=== PATIENT | female | born 1975 | race Hispanic/Latino ===

== ENCOUNTER → 2019-01-31 14:41 | Outpatient (CLI) | payer OTHER, SELFPAY ==
[2019-01-31 15:04] LABS: Add Manual Diff / Slide Review NO; Basophils Absolute Auto 0 /uL (0-100); Basophils Percent Auto 0.7 % (0-2); Eosinophils Absolute Auto 200 /uL (0-450); Eosinophils Percent Auto 3.7 % (2-4); Hematocrit 30.6 % (36-46); Hemoglobin 9.6 g/dL (12.0-16.0); Lymphocytes Absolute Auto 2000 /uL (1100-4500); Lymphocytes Percent Auto 41.4 % (25-40); Mean Corpuscular HGB Conc 31.3 % (30-36); Mean Corpuscular Hemoglobin 20.9 PG (26-34); Mean Corpuscular Volume 66.7 fL (80-100); Monocytes Absolute Auto 500 /uL (0-900); Monocytes Percent Auto 9.8 % (3-14); Neutrophils Absolute Auto 2100 /uL (1500-7000); Neutrophils Percent Auto 44.4 % (50-75); Platelet Count 336 X10^3/uL (150-400); Red Blood Cell Count 4.59 X10^6/uL (4.0-5.2); Red Cell Distribution Width 18.5 % (11.6-14.8); White Blood Cell Count 4.8 X10^3/uL (4.5-11.0)
[2019-01-31 15:32] LABS: Alanine Aminotransferase 11 IU/L (9-52); Albumin 4.5 g/dL (3.5-5.0); Albumin Globulin Ratio 1.3 (1.0-2.8); Alkaline Phosphatase 82 U/L (38-126); Aspartate Aminotransferase 26 IU/L (14-36); Bilirubin Total 0.3 mg/dL (0.2-1.3); Blood Urea Nitrogen 11 mg/dL (7-17); Carbon Dioxide 27 mmol/L (22-32); Chloride 103 mmol/L (98-107); Estimated Glomerular Filt Rate > 60.0 mL/min (>60); Globulin 3.5 g/dL (1.7-4.1); Glucose 102 mg/dL (70-100); HEMOLYSIS < 15 (0-50); Potassium 3.5 mmol/L (3.4-5.1); Sodium 140 mmol/L (137-145)
[2019-01-31 15:39] LABS: Hypochromasia 2+; Microcytosis 3+; Ovalocytes 1+
[2019-01-31 15:49] LABS: HEMOLYSIS < 15 (0-50); Iron 14 ug/dL (37-170)
[2019-01-31 16:00] LABS: Percent Iron Saturation 3 % (15-50); Total Iron Binding Capacity 499 ug/dL (265-497); Transferrin 394 mg/dL (206-381)
[2019-01-31 16:07] LABS: Ferritin 3.6 ng/mL (6.27-137)
[2019-01-31 16:21] LABS: Vitamin B12 274 pg/mL (239-931)
[2019-01-31 16:22] LABS: Thyroid Stimulating Hormone 2.55 uIU/mL (0.47-4.68)
== END ==
PROVIDERS: PCP Physician Assistant; Visit Provider Physician Assistant
DX: D50.9 Iron deficiency anemia, unspecified (principal); N92.4 Excessive bleeding in the premenopausal period; R53.83 Other fatigue
CPT/HCPCS: 36415; 80053; 82607; 82728; 83540; 83550; 84443; 85025

== ENCOUNTER → 2019-02-08 07:36 | Outpatient (CLI) | payer OTHER, SELFPAY ==
--- NOTE | 2019-02-08 07:38 | DI.US.S_ITS ---
PROCEDURE: US PELVIC COMPLETE INDICATIONS: HEAVY BLEEDING DURING MENSES, FE DEFICIENT ANEMIA TECHNIQUE: Real-time scanning was performed of the pelvic organs, with image documentation. Additional endovaginal scanning was necessary due to incomplete visualization of the adnexal and endometrial structures by transabdominal scanning. COMPARISON: None. FINDINGS: Transabdominal scanning: Limited scanning through the kidneys shows no hydronephrosis. No pathologic free abdominal or pelvic fluid. Endovaginal scanning: Uterus: Uterus is normal in size at 10.1 x 5.2 x 6.1 cm. The myometrium is heterogeneous there is a likely fibroid seen on the right anteriorly that is intramural/submucosal measuring 2.2 x 1.6 x 2 cm. The endometrium measures 12 mm in combined thickness. Ovaries: The right ovary measures 4.1 x 2.2 x 2 cm and demonstrates a rounded complex avascular focus that measures up to 2.1 cm. There is also an additional 1.5 cm hypoechoic complex cyst is seen. The left ovary measures 3 x 2.1 x 1.9 cm and demonstrates normal sonographic appearance. No adnexal masses are seen. IMPRESSION: Heterogeneous myometrium with an apparent 2.2 cm fibroid seen. Within the right ovary, there are 2 apparent hemorrhagic cyst is seen. At clinical discretion, a followup pelvic ultrasound is suggested in 6 weeks to assure resolution/ improvement. Dictated by: Simba Cedeno M.D. on 02/08/2019 at 8:03 Approved by: Simba Cedeno M.D. on 02/08/2019 at 8:07
== END ==
PROVIDERS: PCP Physician Assistant; Visit Provider Physician Assistant
DX: N92.4 Excessive bleeding in the premenopausal period (principal); D50.9 Iron deficiency anemia, unspecified; D25.9 Leiomyoma of uterus, unspecified; N83.291 Other ovarian cyst, right side
CPT/HCPCS: 76830; 76856

== ENCOUNTER → 2019-03-16 07:50 | Outpatient (CLI) | payer OTHER, SELFPAY ==
[2019-03-16 08:48] LABS: Add Manual Diff / Slide Review NO; Basophils Absolute Auto 0 /uL (0-100); Basophils Percent Auto 0.9 % (0-2); Eosinophils Absolute Auto 100 /uL (0-450); Eosinophils Percent Auto 2.8 % (2-4); Hematocrit 34.7 % (36-46); Hemoglobin 10.8 g/dL (12.0-16.0); Lymphocytes Absolute Auto 1300 /uL (1100-4500); Lymphocytes Percent Auto 34.4 % (25-40); Mean Corpuscular HGB Conc 31.1 % (30-36); Mean Corpuscular Hemoglobin 21.7 PG (26-34); Mean Corpuscular Volume 69.7 fL (80-100); Monocytes Absolute Auto 300 /uL (0-900); Monocytes Percent Auto 9.1 % (3-14); Neutrophils Absolute Auto 1900 /uL (1500-7000); Neutrophils Percent Auto 52.8 % (50-75); Platelet Count 320 X10^3/uL (150-400); Red Blood Cell Count 4.97 X10^6/uL (4.0-5.2); Red Cell Distribution Width 20.7 % (11.6-14.8); White Blood Cell Count 3.7 X10^3/uL (4.5-11.0)
[2019-03-16 08:57] LABS: HEMOLYSIS < 15 (0-50); Iron 32 ug/dL (37-170)
[2019-03-16 09:02] LABS: Reticulocyte Count, Percent 1.2 % (1.06-2.63)
[2019-03-16 09:07] LABS: Percent Iron Saturation 7 % (15-50); Total Iron Binding Capacity 473 ug/dL (265-497); Transferrin 388 mg/dL (206-381)
[2019-03-16 09:25] LABS: Ferritin 4.7 ng/mL (6.27-137)
[2019-03-16 09:42] LABS: Anisocytosis 2+
[2019-03-16 09:43] LABS: Hypochromasia 2+; Microcytosis 3+
[2019-03-16 09:44] LABS: Ovalocytes 1+
== END ==
PROVIDERS: PCP Physician Assistant
DX: D50.9 Iron deficiency anemia, unspecified (principal)
CPT/HCPCS: 36415; 82728; 83540; 83550; 85025; 85045

== ENCOUNTER 2019-05-30 06:46 | Day surgery (SDC) | payer OTHER, SELFPAY ==
[2019-05-25 08:18] VITALS: BMI 25.5
[2019-05-30] VITALS (12 sets, daily range): BP systolic 99–119; BP diastolic 57–76; PULSE 62–90; RESP 10–18; TEMP 35.8–36.6; O2SAT 94–100; BMI 25.7
--- NOTE | 2019-05-30 | PATH_ITS ---
[facility] Accession Number: [id number] . 01 Material submitted: . uterus - UTERUS (NOT INCLUDING CERVIX) AND BILATERAL FALLOPIAN TUBE REMNANTS . 02 Diagnosis: Uterus and Bilateral Fallopian Tube Remnants, Supracervical Hysterectomy and Bilateral Partial Salpingectomy (Morcellated Uterus Specimen Weighs 87 grams): Portions of late secretory endometrium; negative for glandular hyperplasia, cytologic atypia or malignancy. Myometrium with no significant histomorphologic abnormality. Uterine serosa with no significant histomorphologic abnormality. Portions of fallopian tube with benign paratubal cysts (1-3 mm in greatest dimension); negative for atypia or malignancy. [facility] 06/03/2019 0811 Local . 02 Electronically signed: . Sabrina Jones MD, Pathologist NPI- [id number] . 01 Gross description: . Received in formalin, labeled uterus (not including cervix) / bilateral fallopian tube remnants, is a morcellated uterus (87 g, 13.0 x 8.5 x 4.8 cm in aggregate) and multiple pieces of apparent fallopian tube (3.5 x 2.2 x 0.8 cm in aggregate). The cervix and ovaries are absent. The specimen cannot be oriented, and the endometrium and myometrium cannot be grossly measured. The parenchyma is cadet and unremarkable. The serosa is cadet, smooth, and shiny. The fallopian tube pieces have garcia-purple, smooth, shiny serosa with multiple paratubal cysts (0.1 cm - 0.3 cm) containing clear, colorless, and turbid fluid. The lumens are cadet and unremarkable. Possible fimbriae are identified. Section Code: (A1-A4) uterine parenchyma, sales representative advertising; (A5) fallopian tube pieces, serially sectioned, entirely submitted; (A6, A7) one bisected possible fimbria in each cassette. ([id number]) /I 06/01/2019 1204 Local . 02 Pathologist provided ICD-10: D50.9, N93.9, D50.0, N94.6 . 02 CPT . 119833 Performed at: 01 [facility] [address] [place] [address], [place], [place] [id number] MD Ken Kothari MD Phone: [phone] Performed at: [address] [place] [id number] [place], [place] [id number] MD Yadira Fermin MD Phone: [phone]
[2019-05-30] MEDS: LACTATED RINGERS 1,000 ML 100 ML IV (07:20)
--- NOTE | 2019-05-30 07:48 | PM.PREOP ---
Pre-operative Note Interval Note History & Physical reviewed/Exam performed by Physician: Yes Changes to H&P: No
[2019-05-30] MEDS: CEFAZOLIN 2 GM/100 ML FROZ.PIGGY IV (07:49)
[2019-05-30] MEDS: BUPIVACAINE 0.25% W/ EPI 30 ML VIAL INJ (08:24)
--- NOTE | 2019-05-30 08:27 | SUR.OPER ---
Lithotomy on padded OR bed. Gunter Pad Positioner under torso. Head on pillow, arms padded and tucked at sides. Legs secured in padded yellow fins stirrups.
[2019-05-30] MEDS: ROPIVACAINE 2% PF 2 MG/ML 20ML AMP 20 ML INJ (09:25)
--- NOTE | 2019-05-30 10:15 | P.OP_ITS ---
Operative Date/Time/Diagnoses Date of procedure: 05/30/19 Time of procedure: 07:45 Pre-op diagnosis: Abnormal uterine bleeding Post-op diagnosis: same Procedure & Clinicians Procedure: Procedures Operation Date: 05/30/19 07:45 Actual Procedures Side Surgeon p Laparoscopic Supracervical Hysterectomy w/ bilateral salpingectomy Lashae Bernard MD Indications: abnormal uterine bleeding, no cervical dysplasia Surgeon: Lashae Bernard Assistant Director Of Residence Life: Natividad Palma Anesthesia Type: General Operative Notes Findings: Normal vulva, vagina, and cervix. Normal laparoscopic abdominal survey. Remnants of fallopian tubes after prior tubal ligation, otherwise normal. Uterus bulbous, texture consistent with adenomyosis. Closure Type: primary Specimen(s): portion of left tube, portion of right tube and uterus Applied: catheter Estimated blood loss (mL): 50 Blood products transfused: none Procedure in detail: After proper consents were obtained, the patient was taken to the operating room. General anesthesia was induced, and she was placed in the dorsal lithotomy position and prepped and draped in the normal sterile fashion. A gage catheter was placed, and a speculum placed in the patient's vagina. A single tooth tenaculum was applied to the anterior lip of the cervix, and hegar dilators used to dilate the cervix to 6mm with gentle pressure. A uterine manipulator was gently inserted and the balloon inflated to 5ccs. The tenaculum and speculum were removed from the vagina. Attention was then turned to the abdomen, where 1cc of .25% marcaine with epinephrine was used to infiltrate the skin just below the umbilicus. A scalpel was used to make a 5mm incision, towel clamps were applied and used to elevate the anterior abdominal wall, and a Veress needle gently inserted into the abdomen. Intraperitoneal placement was confirmed with a drop of normal saline passed through the veress needle with gravity, and CO2 used to insufflate the abdomen to 15mmHg. A 5mm trocar and sleeve were placed into the abdomen through this incision, using the towel clamps to elevate the abdominal wall, and intraperitoneal placement was confirmed visually with insertion of the laparoscope. Abdominal survey at this time was normal, and lateral ports were placed under direct visualization. These were placed on the left and right, 8cm from the umbilicus and after infiltration of 1mm of local anesthetic as above. The patient was placed in trendelenburg position, and a blunt probe used to gently push the bowel out of the pelvis. The ovaries and fallopian tube remnants appeared normal bilaterally. A atraumatic grasper was used to elevate the remnant of the left fallopian tube, and a PK device was used to amputate this remnant, which was removed from the abdomen. The uteroovarian ligament and round ligaments were then cauterized and transected with this device, the anterior and posterior leaflets of the broad ligament and skeletonized and the vesicouterine peritoneum identified. This was transected and a bladder flap created with the PK device and gentle traction. The uterine arteries were identified, and cauterized and cut at the level of the internal os. The same procedure was performed on the patient's right, without complication. The Richi loop was inserted into the abdomen, and placed around the uterus at the level of the internal os. After careful inspection for proper placement anteriorly and posteriorly, this device was used to amputate the uterine fundus without complication. The PK device was used to ablate the cervical os, and hemostasis achieved where necessary with the PK device. Attention was then turned to the abdominal wall, where .25% marcaine with epinephrine was used to infiltrate a midline area 2cm above the pubic symphesis. A scalpel was used to make a 3cm minilaparotomy, and a 15mm trocar and sleeve inserted under direct visualization into the abdominal cavity. A 12mm endocatch bag was placed through this port under direct visualization, and carefully deployed into the abdomen. The uterus was placed in the bag, and the bag was closed and removed under direct visualization of all parts of the bag. The open end of the bag was removed through the port, the port was removed, and the open end of the endocatch bag brought through the incision. A small Jennifer device was inserted to protect the incision and skin, and the uterus was brought to the opening of the incision and carefully hand morcellated out through the incision using a scalpel, During this process, a scalpel injury was sustained by the operating surgeon. This was immediately recognized, the involved scalpel removed, and the surgeon's finger cleaned with betadine and double gloved with clean gloves, with no exposure to the patient. After removal of the uterus, the jennifer device and endocatch bag were removed. The fascia at the minilaparotomy incision was closed using 0 vicryl in a running fashion. The abdomen was re-insufflated, hemostasis at the operative sites assur ed, and a repeat abdominal survey was normal. The laparoscope was removed from the abdomen, the insufflating gas allowed to escape, and the ports removed. an interrupted suture was used at the mini-laparotomy to close the subcutaneous space in an interrupted fashion, and the skin at all 4 incisions closed with 4-0 biosyn, then covered with steri strips and bandages. The gage catheter was removed from the bladder. The patient tolerated the procedure well, all counts were correct, 2g of Ancef were given at the beginning of the case and a test was negative on admission. The patient was transported to PACU in stable condition. IVF: 700ccs LR UOP: 150ccs clear yellow urine EBL: <50ccs Complications: none Post-operative Condition: stable Disposition: PACU Plan for aftercare: Routine postoperative care
--- NOTE | 2019-05-30 11:04 | SUR.PHASEI ---
pt held in PACU for over 30 mins for orders to be completed by MD. Report called to YUE Stockton in acute care. Pt transferred via bed to room 221 in stable condition by RN's Hansel.
[2019-05-30 12:12] LABS: Alanine Aminotransferase 13 IU/L (<35)
[2019-05-30 13:27] LABS: Hepatitis B Surface Antigen NEGATIVE s/c (NEGATIVE)
[2019-05-30 13:43] LABS: HIV 1 & 2 Ab/Ag 4th Gen Combo NEGATIVE (NEGATIVE); Hep C Virus Ab w/Reflex Quant NEGATIVE s/c (NEGATIVE)
[2019-05-30] MEDS: ACETAMINOPHEN 325 MG TABLET 650 MG PO (14:31)
--- NOTE | 2019-05-30 16:07 | PC.NURSE ---
Addendum entered by Aria Maldonado R.N. 05/30/19 22:14: Med @ 210 for discomfort, will assess. Stable post op course. Continue w/plan of care. Addendum entered by rAia Maldonado R.N. 05/30/19 20:34: Pt has had relatively uneventful evening. Denies discomfort at this time. Lap sites intact. Stable post op course. Call light w/in reach, Pt calls appropriately for needs. Continue w/plan of care. Addendum entered by Aria Maldonado R.N. 05/30/19 16:21: SCD' on w/o incidense Original Note: Pt resting quietly at this time. Lugs clear, SpO2 98% RA Surgical lap sites CDI Denies discomfort at this time Call light w/in reach. Pt calls appropriately for needs.
[2019-05-30] MEDS: NAPROXEN 250 MG TABLET 500 MG PO ×2 (17:15→22:05)
--- NOTE | 2019-05-30 17:18 | PM.PNPO.1 ---
Subjective Subjective Date Patient Seen: 05/30/19 Time Patient Seen: 17:18 Interval history: Patient reports feeling generally well, has voided several times, has ambulated, is tolerating p.o., has good pain control. Patient reports ?tailbone pressure, like I have to pass gas but can't.? Has not yet passed flatus. Exam Vital Signs (past 8 hours): - 05/30/19 09:42 05/30/19 09:47 05/30/19 09:52 Temperature 97.1 F L Pulse Rate 90 87 84 Respiratory Rate 11 L 10 L 12 Blood Pressure 116/65 113/71 117/70 Pulse Oximetry 97 97 97 05/30/19 10:07 05/30/19 10:22 05/30/19 11:00 Temperature 96.5 F L Pulse Rate 87 82 81 Respiratory Rate 18 10 L 14 Blood Pressure 109/67 111/72 119/66 Pulse Oximetry 100 98 99 05/30/19 11:35 05/30/19 12:05 05/30/19 13:05 Temperature 96.5 F L 97.0 F L 97.0 F L Pulse Rate 79 84 75 Respiratory Rate 16 14 16 Blood Pressure 107/62 104/68 102/64 Pulse Oximetry 94 98 98 05/30/19 14:05 Temperature 97.5 F L Pulse Rate 70 Respiratory Rate 16 Blood Pressure 99/61 Pulse Oximetry 99 Oxygen Delivery Method Room Air Oxygen Flow Rate 0 Const General: cooperative, healthy appearing and comfortable Other: Resting in bed GI Inspection: non-distended and incision (Clean, dry, intact, covered by bandages) Palpation: soft and tender (Mild suprapubic tenderness) Objective Labs Labs: Laboratory Results - last 24 hr 05/30/19 05/30/19 11:12 11:12 ALT 13 Hep Bs Antigen Negative Hepatitis C Antibody Negative HIV 1&2 Ab/P24 Ag 4thGn Negative Assessment & Plan Post-op Assessment and plan (1) Status post laparoscopic hysterectomy: Postoperative Procedures: Procedures Operation Date: 05/30/19 07:45 Actual Procedures Side Surgeon p Laparoscopic Supracervical Hysterectomy w/ bilateral salpingectomy Lashae Bernard MD Postoperative day: 0 Postoperative status: doing well Postoperative status narrative: Patient's only complaint is failure to pass flatus, sensation of rectal pressure. Glycerin suppository ordered as needed, patient encouraged to ambulate, eat, chew gum. Colace ordered as needed, to be given by nurse. Will continue to closely monitor per usual protocol. Discussed scalpel stick injury to surgeon with patient, reviewed lab results, reviewed the patient was not exposed to surgeon's blood or bodily fluids. All questions answered. Postoperative plan: routine post-op care Postoperative plan narrative: Ambulation encouraged, regular diet encouraged, void at well. Colace, as needed glycerin suppository. H and H in a.m. Time Spent With Patient Time with patient: 15-24 minutes Quality VTE Deep Vein Thrombosis/Pulmonary Embolism Present on Admission: No
[2019-05-30 19:51] LABS: Add Manual Diff / Slide Review NO; Basophils Absolute Auto 100 /uL (0-100); Basophils Percent Auto 0.8 % (0-2); Eosinophils Absolute Auto 0 /uL (0-450); Hematocrit 38.6 % (36-46); Hemoglobin 12.8 g/dL (12.0-16.0); Lymphocytes Absolute Auto 700 /uL (1100-4500); Lymphocytes Percent Auto 9.7 % (25-40); Mean Corpuscular HGB Conc 33.2 % (30-36); Mean Corpuscular Hemoglobin 27.2 PG (26-34); Mean Corpuscular Volume 82.1 fL (80-100); Monocytes Absolute Auto 100 /uL (0-900); Neutrophils Absolute Auto 6700 /uL (1500-7000); Neutrophils Percent Auto 88.5 % (50-75); Platelet Count 253 X10^3/uL (150-400); Red Cell Distribution Width 22.7 % (11.6-14.8); White Blood Cell Count 7.6 X10^3/uL (4.5-11.0)
[2019-05-30 20:23] LABS: Anisocytosis 2+; Ovalocytes 2+; Poikilocytosis 2+
[2019-05-30] MEDS: DOCUSATE 100 MG CAPSULE PO (22:07)
[2019-05-31 01:00] VITALS: BP 109/63; PULSE 80; RESP 16; TEMP 36.9; O2SAT 98
--- NOTE | 2019-05-31 02:47 | PC.NURSE ---
PT REPORTS GOOD PAIN CONTROL WITH ONLY USE OF NAPROSYN- DECLINE NEED FOR NARCOTIC AT THIS TIME- LAP SITES TO ABD COVERED WITH LARGE BANDAIDS- CDI, HYPO ACTIVE BT'S NOTED AND STILL NO BM- COLACE GIVEN AT HS AND PT DRANK APPOX 60 MLS OF PRUNE JUICE AND WOULD LIKE TO WAIT UNTIL AM TO DISCUSS NEED FOR RECTAL SUPPOSITORY- ENCOURAGED INCREASED MOBILITY WELL-RESTING COMFORTABLY AT PRESENT AND HOPEFUL TO DISCHARGE TO HOME LATER THIS DATE
[2019-05-31] MEDS: NAPROXEN 250 MG TABLET 500 MG PO (06:39)
[2019-05-31] MEDS: DOCUSATE 100 MG CAPSULE PO (06:39)
[2019-05-31 07:25] VITALS: BP 116/76; PULSE 78; RESP 16; TEMP 36.9; O2SAT 99
--- NOTE | 2019-05-31 07:29 | PC.NURSE ---
Patient alert, oriented denies pain at this time, no nausea. Ambulating indep in halls. No needs at this time.
--- NOTE | 2019-05-31 07:55 | P.PN_ITS ---
Subjective Subjective Date Patient Seen: 05/31/19 Time Patient Seen: 07:30 Interval history: Patient reports feeling well overnight, good pain control on naproxen, voiding without difficulty, ambulating without difficulty, tolerating p.o.. Minimal to no vaginal spotting or discharge. Patient has passed scant flatus, is concerned this feels that she has more flatus to pass. Has not had bowel movement. Exam Vital Signs (past 8 hours): - 05/31/19 01:00 Temperature 98.4 F Pulse Rate 80 Respiratory Rate 16 Blood Pressure 109/63 Pulse Oximetry 98 Oxygen Delivery Method Room Air Oxygen Flow Rate 0 Const General: cooperative, healthy appearing and comfortable Other: Patient resting in bed, smiling. Resp Effort & Inspection: normal respiratory effort Auscultation: clear to auscultation bilaterally Cardio Rate: regular rate Rhythm: regular rhythm GI Inspection: non-distended Palpation: soft, No guarding and tender (Very mildly tender suprapubically) Other: Incisions clean, dry, intact. Patient to remove bandages in shower. Skin General: no rashes or lesions noted Extrem Right lower extremity: normal to inspection Left lower extremity: normal to inspection Objective Labs Result Diagrams: 05/30/19 19:30 Labs: Laboratory Results - last 24 hr 05/30/19 05/30/19 05/30/19 11:12 11:12 19:30 WBC 7.6 RBC 4.70 Hgb 12.8 Hct 38.6 MCV 82.1 MCH 27.2 MCHC 33.2 RDW 22.7 H Plt Count 253 Neut % (Auto) 88.5 H Lymph % (Auto) 9.7 L [place] % (Auto) 1.0 L Eos % (Auto) 0.0 L Baso % (Auto) 0.8 Neut # (Auto) 6700 Lymph # (Auto) 700 L [place] # (Auto) 100 Eos # (Auto) 0 Baso # (Auto) 100 RBC Morphology See below Poikilocytosis 2+ H Anisocytosis 2+ H Ovalocytes 2+ H ALT 13 Hep Bs Antigen Negative Hepatitis C Antibody Negative HIV 1&2 Ab/P24 Ag 4thGn Negative Blood Type Antibody Screen 05/30/19 19:30 WBC RBC Hgb Hct MCV MCH MCHC RDW Plt Count Neut % (Auto) Lymph % (Auto) [place] % (Auto) Eos % (Auto) Baso % (Auto) Neut # (Auto) Lymph # (Auto) [place] # (Auto) Eos # (Auto) Baso # (Auto) RBC Morphology Poikilocytosis Anisocytosis Ovalocytes ALT Hep Bs Antigen Hepatitis C Antibody HIV 1&2 Ab/P24 Ag 4thGn Blood Type A Positive Antibody Screen Negative Assessment & Plan Assessment and plan (1) Status post laparoscopic hysterectomy: Current visit: Yes Status: Acute Assessment & Plan narrative: This patient is recovering well postoperatively on postop day 1 after a laparoscopic supracervical hysterectomy and bilateral salpingectomy for menorrhagia. The patient is meeting postoperative goals appropriately. Patient has passed scant flatus, to ambulate, have breakfast with coffee, chew gum, and considering suppository. Discussed that bowel movement would not necessarily be expected, passage of flatus sign of good bowel function. Discussed precautions for return including fevers, chills, increasing pain, increasing bleeding, dizziness, chest pain, trouble breathing, or any other concerns. Patient will return to clinic in 1-2 weeks for postoperative checkup. Discussed postoperative precautions such as avoiding heavy lifting nothing in the vagina. Questions were answered, patient vocalized understanding. Patient spouse also vocalized understanding. Time Spent With Patient Time with patient: 15-24 minutes Quality VTE Deep Vein Thrombosis/Pulmonary Embolism Present on Admission: No
[2019-05-31 08:41] LABS: Hemoglobin 12.6 g/dL (12.0-16.0)
--- NOTE | 2019-05-31 10:01 | PC.NURSE ---
Went over dc meds and instructions with patien, questions answered. Patient tolerated breakfast without nausea, had bowel movement. Patient taken via WC to vehicle driven by spouse, patient had all belongings.
--- NOTE | 2019-05-31 14:21 | CM.DANOTE ---
DCP Brief Assessment Note Patient is a 43 year old female who was admitted on 05/31/19 for OBGYN surgical intervention. Pt has [employer] for insurance and her PCP is Lucia Gregory. EMR was reviewed. Per MD, pt tolerated procedure well and is stable for d/c home with no identified barriers to discharge. Per RN, pt is alert and oriented and ambulating halls independently, no concerns at this time. Pt works and is independent at baseline. SW unable to complete bedside assessment due to triage needs and no d/c needs identified. Plan: Patient to d/c home today via family POV and no SW needs at this time. LINDEN Lau
[2019-06-02 15:04] LABS: Hepatitis B Surf Ab Qualitativ Nonreactive (Nonreactive)
== END 2019-05-31 10:03 | disposition home or self-care (01) ==
LOC: OR 06:49 → AC 10:46
PROVIDERS: PCP Physician Assistant; Referring Provider Obstetrics & Gynecology; Visit Provider Obstetrics & Gynecology
PROC: 0UT94ZL Resection of Uterus, Supracervical, Percutaneous Endoscopic Approach (ICD-10-PCS; CPT 58542; principal; 2019-05-30 07:45)
DX: N93.9 Abnormal uterine and vaginal bleeding, unspecified (principal); D50.0 Iron deficiency anemia secondary to blood loss (chronic); N94.6 Dysmenorrhea, unspecified; N83.8 Other noninflammatory disorders of ovary, fallopian tube and broad ligament
CPT/HCPCS: 58542; 36415; 85014; 85018; 85025; 86850; 86900; 86901; J0690; J1100; J1885; J2250; J2405; J2704; J2795; J3010

== ENCOUNTER 2019-06-02 16:38 | Emergency (ER) | payer OTHER, SELFPAY ==
[2019-05-30 14:17] VITALS: BMI 25.7
[2019-06-02 17:15] VITALS: BP 128/65; PULSE 82; RESP 15; TEMP 37.2; O2SAT 100; BMI 25.7
--- NOTE | 2019-06-02 17:22 | DI.RAD.S_ITS ---
PROCEDURE: XR CHEST 2V INDICATIONS: chest pain TECHNIQUE: 2 views of the chest were acquired. COMPARISON: None. FINDINGS: Surgical changes and devices: None. Lungs and pleura: Lungs are clear. No pleural effusions or pneumothorax. Mediastinum: Mediastinal contours are normal. Heart size is normal. Bones and chest wall: No suspicious bony abnormalities. Soft tissues appear unremarkable. IMPRESSION: Negative chest. No acute cardiopulmonary process is evident. Dictated by: Yovani Arriaza M.D. on 06/02/2019 at 16:50 Approved by: Yovani Arriaza M.D. on 06/02/2019 at 16:51
[2019-06-02 18:04] LABS: Add Manual Diff / Slide Review NO; Basophils Absolute Auto 0 /uL (0-100); Basophils Percent Auto 0.3 % (0-2); Eosinophils Absolute Auto 200 /uL (0-450); Eosinophils Percent Auto 2.4 % (2-4); Hematocrit 38.5 % (36-46); Hemoglobin 12.8 g/dL (12.0-16.0); Lymphocytes Absolute Auto 2500 /uL (1100-4500); Lymphocytes Percent Auto 36.3 % (25-40); Mean Corpuscular HGB Conc 33.3 % (30-36); Mean Corpuscular Hemoglobin 27.6 PG (26-34); Mean Corpuscular Volume 82.9 fL (80-100); Monocytes Absolute Auto 500 /uL (0-900); Monocytes Percent Auto 6.7 % (3-14); Neutrophils Absolute Auto 3700 /uL (1500-7000); Neutrophils Percent Auto 54.3 % (50-75); Platelet Count 257 X10^3/uL (150-400); Red Blood Cell Count 4.65 X10^6/uL (4.0-5.2); Red Cell Distribution Width 22.2 % (11.6-14.8); White Blood Cell Count 6.8 X10^3/uL (4.5-11.0)
[2019-06-02 18:07] LABS: INR 1.2 (0.9-1.3); Prothrombin Time 13.3 SECONDS (10.1-12.7)
[2019-06-02 18:09] LABS: PTT Partial Thromboplastin Tim 31 SECONDS (26.4-36.2)
[2019-06-02 18:12] LABS: Alanine Aminotransferase 12 IU/L (<35); Albumin 4.2 g/dL (3.5-5.0); Albumin Globulin Ratio 1.3 (1.0-2.8); Alkaline Phosphatase 59 U/L (38-126); Aspartate Aminotransferase 19 IU/L (14-36); BUN Creatinine Ratio 16.7 (6-22); Bilirubin Total 0.2 mg/dL (0.2-1.3); Blood Urea Nitrogen 10 mg/dL (7-17); Calcium 9.3 mg/dL (8.4-10.2); Carbon Dioxide 26 mmol/L (22-32); Chloride 104 mmol/L (98-107); Creatine Kinase 32 U/L (30-135); Estimated Glomerular Filt Rate > 60.0 mL/min (>60); Globulin 3.3 g/dL (1.7-4.1); Glucose 101 mg/dL (70-100); HEMOLYSIS 15 (0-50); Lipase 60 U/L (23-300); Potassium 3.8 mmol/L (3.4-5.1); Sodium 139 mmol/L (137-145); Total Protein 7.5 g/dL (6.3-8.2)
--- NOTE | 2019-06-02 18:14 | ED_ITS ---
HPI - Chest Pain <ALINA Rothman - Last Filed: 06/02/19 21:28> General Chief Complaint: Chest Pain Stated Complaint: recent procedure, nausea,headache,cramp in leg Time Seen by Provider: 06/02/19 18:09 Source: patient and family Mode of arrival: Ambulatory Limitations: no limitations History of Present Illness HPI narrative: The patient is a 43-year-old female nonsmoker who presents with a chief complaint of postoperative pain, cramps in her legs, nausea headache and transient chest pain. She had a laparoscopic hysterectomy on Thursday. She states she had some initial chest pain immediately after, but went away. She states her chest pain comes and goes. She denies any fevers, but complains of some hot flashes. She states she had this before her surgery as well. She denies any vomiting she take Motrin for the headache. She states she called the clinic and they referred her to the emergency department today. She denies any lower leg swelling, shortness of breath. Related Data Previous Rx's Medication Instructions Recorded ferrous sulfate 324 mg PO DAILY #90 tab 02/15/19 Allergies Allergy/AdvReac Type Severity Reaction Status Date / Time Sulfa (Sulfonamide Allergy Intermediate Hives Verified 06/02/19 17:15 Antibiotics) Review of Systems <ALINA Rothman - Last Filed: 06/02/19 21:28> Review of Systems Narrative: GENERAL: See HPI HEENT: Denies sinus pain, ear pain, sore throat, difficulty swallowing, dizziness. RESPIRATORY: Denies dyspnea, cough, wheezing, hemoptysis, sputum. CARDIOVASCULAR: See HPI GASTROINTESTINAL: See HPI : Denies dysuria, frequency, incontinence, hematuria, urinary retention. MUSCULOSKELETAL: denies weakness, joint pain, or bony pain SKIN: Denies rash, skin lesions, or other NEUROLOGIC: Denies weakness, headache, numbness, change in speech, confusion, seizures, incoordination. PSYCHIATRIC: No concerning psychosocial issues. 12 point review of systems is negative except for those stated above Patient History <ALINA Rothman - Last Filed: 06/02/19 21:28> Medical History Anemia (Inactive ~2000) Blindness (Chronic) Carpal tunnel syndrome (Inactive ~1999) Migraines (Chronic) Painful menstrual periods (Chronic) Palpitations (Acute) Surgical History Anesthesia (Resolved) History of tubal ligation (Resolved ~2001) Family History Mother Diabetes mellitus Mental health problem Brother Hypertension Brother Diabetes mellitus Hypertension Grandfather History of heart disease Hypertension Stroke Social History household members: spouse and children Smoking Status: Never smoker second hand exposure: No alcohol intake: never substance use type: does not use Smoking Status: Never smoker Substance Use Type: does not use Exam <ALINA Rothman - Last Filed: 06/02/19 21:28> Narrative Exam Narrative: GENERAL: This is a well-nourished, well-developed patient, in no acute distress HEAD: Atraumatic. Normocephalic. No temporal or scalp tenderness. EYES: Pupils equal round and reactive. Extraocular motions intact. No scleral icterus. No injection or drainage. ENT: Nose without bleeding, purulent drainage or septal hematoma. Throat without erythema, tonsillar hypertrophy or exudate. Uvula midline. Airway patent. NECK: Trachea midline. No JVD or lymphadenopathy. Supple, nontender, no meningeal signs. CARDIOVASCULAR: Regular rate and rhythm RESPIRATORY: Clear to auscultation. Breath sounds equal bilaterally. No wheezes, rales, or rhonchi. No cough. No increased respiratory effort. No accessory muscle use. GASTROINTESTINAL: Abdomen soft, non-tender, nondistended. No hepato- splenomegaly, or palpable masses. No guarding. Active bowel sounds all 4 quadrants EXTREMITIES: No clubbing, cyanosis, or edema. No joint tenderness, effusion, or edema noted. BACK: Nontender without deformity or crepitance. No flank tenderness. NEURO: AOx3. SKIN: Postoperative wounds clean dry and intact no spreading erythema or drainage. Initial Vital Signs Initial Vital Signs: Vital Signs Temperature 98.9 F 06/02/19 17:15 Pulse Rate 82 06/02/19 17:15 Respiratory Rate 15 06/02/19 17:15 Blood Pressure 128/65 06/02/19 17:15 Pulse Oximetry 100 06/02/19 17:15 <Froilan Akers DO - Last Filed: 06/02/19 22:09> Initial Vital Signs Initial Vital Signs: Vital Signs Temperature 98.9 F 06/02/19 17:15 Pulse Rate 82 06/02/19 17:15 Respiratory Rate 15 06/02/19 17:15 Blood Pressure 128/65 06/02/19 17:15 Pulse Oximetry 100 06/02/19 17:15 Course <ALINA Rothman - Last Filed: 06/02/19 21:28> Orders Ordered: ED Orders 06/02/19 17:22 XR chest 2V Stat EKG-12 Lead Stat 06/02/19 17:50 Complete Blood Count AUTO DIFF Stat Comprehensive Metabolic Panel Stat D Dimer Stat Lipase Stat Magnesium Stat Partial Thromboplastin Time Stat Prothrombin Time INR Stat Troponin & CK Cardiac Panel Stat 06/02/19 19:53 Troponin & CK Cardiac Panel Stat Discontinued Medications Ketorolac Tromethamine (Toradol) 30 mg IV NOW ONE Stop: 06/02/19 19:02 Last Admin: 06/02/19 19:22 Dose: 30 mg Documented by: HORTENCIA Ondansetron HCl (Zofran) 4 mg IV NOW ONE Stop: 06/02/19 19:02 Last Admin: 06/02/19 19:22 Dose: 4 mg Documented by: HORTENCIA Vital Signs Vital signs: Vital Signs - 8 hr 06/02/19 17:15 06/02/19 19:32 06/02/19 20:17 Temperature 98.9 F Pulse Rate 82 70 75 Respiratory Rate 15 17 Blood Pressure 128/65 Blood Pressure [Left Arm] 121/64 114/71 Pulse Oximetry 100 98 98 <Froilan Akers DO - Last Filed: 06/02/19 22:09> Orders Ordered: ED Orders 06/02/19 17:22 XR chest 2V Stat EKG-12 Lead Stat 06/02/19 17:50 Complete Blood Count AUTO DIFF Stat Comprehensive Metabolic Panel Stat D Dimer Stat Lipase Stat Magnesium Stat Partial Thromboplastin Time Stat Prothrombin Time INR Stat Troponin & CK Cardiac Panel Stat 06/02/19 19:53 Troponin & CK Cardiac Panel Stat Discontinued Medications Ketorolac Tromethamine (Toradol) 30 mg IV NOW ONE Stop: 06/02/19 19:02 Last Admin: 06/02/19 19:22 Dose: 30 mg Documented by: HORTENCIA Ondansetron HCl (Zofran) 4 mg IV NOW ONE Stop: 06/02/19 19:02 Last Admin: 06/02/19 19:22 Dose: 4 mg Documented by: HORTENCIA Vital Signs Vital signs: Vital Signs - 8 hr 06/02/19 17:15 06/02/19 19:32 06/02/19 20:17 Temperature 98.9 F Pulse Rate 82 70 75 Respiratory Rate 15 17 Blood Pressure 128/65 Blood Pressure [Left Arm] 121/64 114/71 Pulse Oximetry 100 98 98 MDM - Chest Pain <CINTHIA Rothman-BC - Last Filed: 06/02/19 21:28> Lab Data Result diagrams: 06/02/19 17:50 06/02/19 17:50 Labs: Lab Results 06/02/19 06/02/19 06/02/19 Range/Units 17:50 17:50 17:50 WBC 6.8 (4.5-11.0) X10^3/uL RBC 4.65 (4.0-5.2) X10^6/uL Hgb 12.8 (12.0-16.0) g/dL Hct 38.5 (36-46) % MCV 82.9 (80-100) fL MCH 27.6 (26-34) PG MCHC 33.3 (30-36) % RDW 22.2 H (11.6-14.8) % Plt Count 257 (150-400) X10^3/uL Neut % (Auto) 54.3 (50-75) % Lymph % (Auto) 36.3 (25-40) % [place] % (Auto) 6.7 (3-14) % Eos % (Auto) 2.4 (2-4) % Baso % (Auto) 0.3 (0-2) % Neut # (Auto) 3700 (1125-2148) /uL Lymph # (Auto) 2500 (1624-1863) /uL [place] # (Auto) 500 (0-900) /uL Eos # (Auto) 200 (0-450) /uL Baso # (Auto) 0 (0-100) /uL RBC Morphology See below Poikilocytosis 1+ H Anisocytosis 1+ H Microcytosis 1+ H PT 13.3 H (10.1-12.7) SECONDS INR 1.2 (0.9-1.3) APTT 31 (26.4-36.2) SECONDS D-Dimer (<230) ng/mL Sodium 139 (137-145) mmol/L Potassium 3.8 (3.4-5.1) mmol/L Chloride 104 (98-107) mmol/L Carbon Dioxide 26 (22-32) mmol/L BUN 10 (7-17) mg/dL Creatinine 0.60 (0.52-1.04) mg/dL Estimated GFR > 60.0 (>60) mL/min BUN/Creatinine Ratio 16.7 (6-22) Glucose 101 H (70-100) mg/dL Calcium 9.3 (8.4-10.2) mg/dL Magnesium (1.6-2.3) mg/dL Total Bilirubin 0.2 (0.2-1.3) mg/dL AST 19 (14-36) IU/L ALT 12 (<35) IU/L Alkaline Phosphatase 59 (38-126) U/L Total Creatine Kinase 32 (30-135) U/L CK-MB (CK-2) TNP CK-MB (CK-2) Rel Index TNP Troponin I < 0.012 (0.01-0.034) ng/mL Total Protein 7.5 (6.3-8.2) g/dL Albumin 4.2 (3.5-5.0) g/dL Globulin 3.3 (1.7-4.1) g/dL Albumin/Globulin Ratio 1.3 (1.0-2.8) Lipase 60 (23-300) U/L 06/02/19 06/02/19 06/02/19 Range/Units 17:50 17:50 19:53 WBC (4.5-11.0) X10^3/uL RBC (4.0-5.2) X10^6/uL Hgb (12.0-16.0) g/dL Hct (36-46) % MCV (80-100) fL MCH (26-34) PG MCHC (30-36) % RDW (11.6-14.8) % Plt Count (150-400) X10^3/uL Neut % (Auto) (50-75) % Lymph % (Auto) (25-40) % [place] % (Auto) (3-14) % Eos % (Auto) (2-4) % Baso % (Auto) (0-2) % Neut # (Auto) (3391-8664) /uL Lymph # (Auto) (5263-3656) /uL [place] # (Auto) (0-900) /uL Eos # (Auto) (0-450) /uL Baso # (Auto) (0-100) /uL RBC Morphology Poikilocytosis Anisocytosis Microcytosis PT (10.1-12.7) SECONDS INR (0.9-1.3) APTT (26.4-36.2) SECONDS D-Dimer 282 H (<230) ng/mL Sodium (137-145) mmol/L Potassium (3.4-5.1) mmol/L Chloride (98-107) mmol/L Carbon Dioxide (22-32) mmol/L BUN (7-17) mg/dL Creatinine (0.52-1.04) mg/dL Estimated GFR (>60) mL/min BUN/Creatinine Ratio (6-22) Glucose (70-100) mg/dL Calcium (8.4-10.2) mg/dL Magnesium 2.2 (1.6-2.3) mg/dL Total Bilirubin (0.2-1.3) mg/dL AST (14-36) IU/L ALT (<35) IU/L Alkaline Phosphatase (38-126) U/L Total Creatine Kinase 22 L (30-135) U/L CK-MB (CK-2) TNP CK-MB (CK-2) Rel Index TNP Troponin I < 0.012 (0.01-0.034) ng/mL Total Protein (6.3-8.2) g/dL Albumin (3.5-5.0) g/dL Globulin (1.7-4.1) g/dL Albumin/Globulin Ratio (1.0-2.8) Lipase (23-300) U/L Imaging Data Chest x-ray: Radiologist's Impression: [address] [address] XRay Report Signed Patient: Suzy Parisi LMR#: [id number] : 1975Acct:[id number] Age/Sex: 43 / FDate of Service: 06/02/19 Loc: ED Accession Number: [id number] Procedure: XR chest 2V Ordering Provider: Steven Loja D.O. PROCEDURE: XR CHEST 2V INDICATIONS: chest pain TECHNIQUE: 2 views of the chest were acquired. COMPARISON: None. FINDINGS: Surgical changes and devices: None. Lungs and pleura: Lungs are clear. No pleural effusions or pneumothorax. Mediastinum: Mediastinal contours are normal. Heart size is normal. Bones and chest wall: No suspicious bony abnormalities. Soft tissues appear unremarkable. IMPRESSION: Negative chest. No acute cardiopulmonary process is evident. Dictated by: Yovani Arriaza M.D. on 06/02/2019 at 16:50 Approved by: Yovani Arriaza M.D. on 06/02/2019 at 16:51 MDM Narrative Medical decision making narrative: The patient is a 43-year-old female who presents with a chief complaint of postoperative pain. She has a negative initial troponin, as well as a negative repeat troponin. Her D-dimer is barely above normal limits, which I would expect for her given her recent postoperative status. I have low suspicion of PE as the patient is not tachycardic, not hypoxic and very active. Chest x-ray shows no acute findings. I believe her chest pain is likely related to postoperative gas. I discussed at length the importance of following up with primary care provider as well as OBGYN. I did call and speak with Dr. Hardin who is on-call for the patient's surgeon. No other specific workup is necessary at this point time. Discussed at length following up with her PCP as well as OBGYN. Discussed at length coming back to the emergency department for any acute concerns. Patient has no questions or concerns upon discharge and states understanding of return precautions as well as follow-up care. <Froilan Akers, DO - Last Filed: 06/02/19 22:09> Lab Data Labs: Lab Results 06/02/19 06/02/19 06/02/19 Range/Units 17:50 17:50 17:50 WBC 6.8 (4.5-11.0) X10^3/uL RBC 4.65 (4.0-5.2) X10^6/uL Hgb 12.8 (12.0-16.0) g/dL Hct 38.5 (36-46) % MCV 82.9 (80-100) fL MCH 27.6 (26-34) PG MCHC 33.3 (30-36) % RDW 22.2 H (11.6-14.8) % Plt Count 257 (150-400) X10^3/uL Neut % (Auto) 54.3 (50-75) % Lymph % (Auto) 36.3 (25-40) % [place] % (Auto) 6.7 (3-14) % Eos % (Auto) 2.4 (2-4) % Baso % (Auto) 0.3 (0-2) % Neut # (Auto) 3700 (7720-0252) /uL Lymph # (Auto) 2500 (2831-8525) /uL [place] # (Auto) 500 (0-900) /uL Eos # (Auto) 200 (0-450) /uL Baso # (Auto) 0 (0-100) /uL RBC Morphology See below Poikilocytosis 1+ H Anisocytosis 1+ H Microcytosis 1+ H PT 13.3 H (10.1-12.7) SECONDS INR 1.2 (0.9-1.3) APTT 31 (26.4-36.2) SECONDS D-Dimer (<230) ng/mL Sodium 139 (137-145) mmol/L Potassium 3.8 (3.4-5.1) mmol/L Chloride 104 (98-107) mmol/L Carbon Dioxide 26 (22-32) mmol/L BUN 10 (7-17) mg/dL Creatinine 0.60 (0.52-1.04) mg/dL Estimated GFR > 60.0 (>60) mL/min BUN/Creatinine Ratio 16.7 (6-22) Glucose 101 H (70-100) mg/dL Calcium 9.3 (8.4-10.2) mg/dL Magnesium (1.6-2.3) mg/dL Total Bilirubin 0.2 (0.2-1.3) mg/dL AST 19 (14-36) IU/L ALT 12 (<35) IU/L Alkaline Phosphatase 59 (38-126) U/L Total Creatine Kinase 32 (30-135) U/L CK-MB (CK-2) TNP CK-MB (CK-2) Rel Index TNP Troponin I < 0.012 (0.01-0.034) ng/mL Total Protein 7.5 (6.3-8.2) g/dL Albumin 4.2 (3.5-5.0) g/dL Globulin 3.3 (1.7-4.1) g/dL Albumin/Globulin Ratio 1.3 (1.0-2.8) Lipase 60 (23-300) U/L 06/02/19 06/02/19 06/02/19 Range/Units 17:50 17:50 19:53 WBC (4.5-11.0) X10^3/uL RBC (4.0-5.2) X10^6/uL Hgb (12.0-16.0) g/dL Hct (36-46) % MCV (80-100) fL MCH (26-34) PG MCHC (30-36) % RDW (11.6-14.8) % Plt Count (150-400) X10^3/uL Neut % (Auto) (50-75) % Lymph % (Auto) (25-40) % [place] % (Auto) (3-14) % Eos % (Auto) (2-4) % Baso % (Auto) (0-2) % Neut # (Auto) (4565-0581) /uL Lymph # (Auto) (3144-7832) /uL [place] # (Auto) (0-900) /uL Eos # (Auto) (0-450) /uL Baso # (Auto) (0-100) /uL RBC Morphology Poikilocytosis Anisocytosis Microcytosis PT (10.1-12.7) SECONDS INR (0.9-1.3) APTT (26.4-36.2) SECONDS D-Dimer 282 H (<230) ng/mL Sodium (137-145) mmol/L Potassium (3.4-5.1) mmol/L Chloride (98-107) mmol/L Carbon Dioxide (22-32) mmol/L BUN (7-17) mg/dL Creatinine (0.52-1.04) mg/dL Estimated GFR (>60) mL/min BUN/Creatinine Ratio (6-22) Glucose (70-100) mg/dL Calcium (8.4-10.2) mg/dL Magnesium 2.2 (1.6-2.3) mg/dL Total Bilirubin (0.2-1.3) mg/dL AST (14-36) IU/L ALT (<35) IU/L Alkaline Phosphatase (38-126) U/L Total Creatine Kinase 22 L (30-135) U/L CK-MB (CK-2) TNP CK-MB (CK-2) Rel Index TNP Troponin I < 0.012 (0.01-0.034) ng/mL Total Protein (6.3-8.2) g/dL Albumin (3.5-5.0) g/dL Globulin (1.7-4.1) g/dL Albumin/Globulin Ratio (1.0-2.8) Lipase (23-300) U/L Discharge Plan Departure Patient Disposition: Home Clinical Impression: Atypical chest pain, Post-operative pain Discharge Date/Time: 06/02/19 21:27 Instructions: DI for Atypical Chest Pain, Hysterectomy -- Laparoscopic Surgery Activity Restrictions/Additional Instructions: Please follow-up with primary care provider as well as with your OBGYN Your preliminary evaluation came back well in the emergency department. As I discussed, we did not do the most invasive imaging at this point time. If you have any acute concerns please come back to the emergency department cleaning sh ortness of breath, chest pain etcetera Prescriptions: No Action ferrous sulfate 324 mg (65 mg iron) tablet,delayed release (DR/EC) 324 mg PO DAILY Qty: 90 RF: 3 Referrals: [place],MD Lashae [Physician] - Jenn Gregory PA-C [Primary Care Provider] - <Froilan Akers DO - Last Filed: 06/02/19 22:09> Sign Out Provider Sign Out Attestation: Dr Akers Co-Sign Statement: I was available for consultation during this patient's emergency department visit. This chart is signed by myself for administrative purposes only. I did not have direct contact with this patient during this visit. They were seen independently by the APC.
[2019-06-02 18:23] LABS: Troponin I < 0.012 ng/mL (0.01-0.034)
[2019-06-02 18:37] LABS: Anisocytosis 1+; Microcytosis 1+; Poikilocytosis 1+
[2019-06-02 18:54] LABS: Magnesium 2.2 mg/dL (1.6-2.3)
[2019-06-02 18:56] LABS: D Dimer 282 ng/mL (<230)
[2019-06-02] MEDS: KETOROLAC 60 MG/2 ML VIAL 30 MG IV (19:22)
[2019-06-02] MEDS: ONDANSETRON 4 MG/2 ML INJ IV (19:22)
[2019-06-02 19:32] VITALS: BP 121/64; PULSE 70; RESP 17; O2SAT 98
[2019-06-02 20:10] LABS: Creatine Kinase 22 U/L (30-135)
[2019-06-02 20:17] VITALS: BP 114/71; PULSE 75; O2SAT 98
[2019-06-02 20:23] LABS: Troponin I < 0.012 ng/mL (0.01-0.034)
== END 2019-06-02 21:27 | disposition home or self-care (01) ==
PROVIDERS: Emergency Medicine; Emergency Provider Nurse Practitioner Family; PCP Physician Assistant
DX: R07.89 Other chest pain (principal); G89.18 Other acute postprocedural pain
CPT/HCPCS: 36415; 71046; 80053; 82550; 83690; 83735; 84484; 85025; 85379; 85610; 85730; 93005; 96374; 96375; 99284; 99285; J1885; J2405

== ENCOUNTER → 2019-10-18 14:30 | Outpatient (CLI) | payer OTHER, SELFPAY ==
[2019-05-30 14:17] VITALS: BMI 25.7
--- NOTE | 2019-10-18 14:32 | DI.US.S_ITS ---
PROCEDURE: US ABDOMEN LIMITED INDICATIONS: UMBILICAL PAIN TECHNIQUE: Real-time focused scanning was performed of the abdomen, with image documentation. COMPARISON: None. FINDINGS: Scanning is performed at the area of clinical concern involving the left periumbilical region. At this site, no findings of hernia can be seen, including with Valsalva maneuver. No masses can be seen. IMPRESSION: Negative for hernia. No masses are seen. Dictated by: Simba Cedeno M.D. on 10/18/2019 at 15:23 Approved by: Simba Cedeno M.D. on 10/18/2019 at 15:24
== END ==
PROVIDERS: Referring Provider Obstetrics & Gynecology; Visit Provider Obstetrics & Gynecology
DX: R10.33 Periumbilical pain (principal); Z90.710 Acquired absence of both cervix and uterus
CPT/HCPCS: 76705

== ENCOUNTER → 2019-10-20 15:40 | Oncology outpatient (ONC) | payer OTHER, SELFPAY ==
[2019-02-08 12:47] VITALS: BP 124/76; PULSE 81; RESP 18; TEMP 37; O2SAT 99
--- NOTE | 2019-02-08 13:15 | P.CONONC_ITS ---
History of Present Illness - Data of Consult Consult date: 02/08/19 Primary Care Provider: Jenn Gregory PA-C - Consult Narrative Narrative: Diagnosis: Iron deficiency anemia History of present illness: Suzy Pearson is a 43 year old female who is referred for further evaluation of iron deficiency anemia. The patient reports that she has had a longstanding history of iron deficiency dating back nearly 20 years. She has never required a transfusion but has had intermittent anemia. Few years ago, she had some thinning of her hair. Her brake reliner had her take iron more regularly and she did have some improvement although her iron stores did not increase by very much. She has just restarted taking oral iron about a week ago. She is taking 1 pill a day. She denies any GI upset. She is not having any constipation or abdominal pain. She does have some difficulty remembering to take the medication. She denies any epistaxis or gingival bleeding. There has been no blood in the urine or stool. She does have heavy periods. She often times is passing large clots. She thinks that the severity of her menstrual bleeding has increased over the last few years. She has not taken any control pills. Her only medication is iron. She reports an allergy to sulfa. Her past medical history is notable for prior tubal ligation. She has 4 children. She had a tonsillectomy. She has otherwise been quite healthy. 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 She does not smoke. Her is the in the travel quite a bit. She grew up in [place]. Family history is negative for any anemia or blood dyscrasias. CC: Carlos Arroyo MD Home Medications and Allergies Home Medications Medication Instructions Recorded Confirmed Type ferrous sulfate 324 mg (65 mg 324 mg PO DAILY 01/31/19 02/08/19 History iron) tablet,delayed release Allergies Allergy/AdvReac Type Severity Reaction Status Date / Time Sulfa (Sulfonamide Allergy Intermediate Hives Verified 01/31/19 13:54 Antibiotics) Medical History - Medical, Surgical, Family History Medical History: Medical History (Last Updated 02/01/19 @ 20:20 by Nazia Roche) Anemia Onset Date: ~2000 Blindness Carpal tunnel syndrome Onset Date: ~1999 Migraines Painful menstrual periods Surgical History: Surgical History (Last Updated 02/01/19 @ 20:20 by Nazia Roche) Anesthesia History of tubal ligation Onset Date: ~2001 Family History: Family History (Last Updated 02/01/19 @ 20:23 by Nazia Roche) Mother Diabetes mellitus Mental health problem Brother Hypertension Brother Diabetes mellitus Hypertension Grandfather History of heart disease Hypertension Stroke - Social History Smoking Status: Never smoker Review of Systems - Patient Self-Reported Symptoms SR Constitution: Fatigue/Malaise, Night Sweats SR eye issues: Eye pain SR respiratory issues: Shortness of breath SR Cardiovascular issues: Palpitations, Chest pain, discomfort, tightness, Dizzy/lightheaded SR Skin issues: Hair loss or scalp prob SR Gastrointestinal issues: Constipation, Abdominal pain SR Neuro issues: Headache, Lightheaded/dizzy Constitutional: decreased exercise tolerance Ears, nose, mouth, throat: headaches, lightheadedness Cardiovascular: palpitations, dyspnea on exertion Respiratory: no cough Gastrointestinal: no change in appetite, no abdominal pain, no constipation Genitourinary: irregular menses Endocrine: no hormone therapy Hematologic/Lymphatic: anemia Exam Vital signs: Vital Signs Temp Pulse Resp BP Pulse Ox 02/08/19 12:47 98.6 F 81 18 124/76 99 Intake and Output 02/07/19 02/08/19 02/08/19 23:59 07:59 15:59 Other: Weight 67.9 kg Patient Weight 02/08/19 23:59 Weight 67.9 kg - Constitutional positive no acute distress, positive average body habitus - Routine HEENT Exam Head: Present: normocephalic, atraumatic Eye: Present: EOMI, PERRL. Absent: conjunctival icterus, scleral injection ENT: Present: mucous membranes moist, oropharynx clear, dentition normal - Routine Neck Exam Present: supple. Absent: lymphadenopathy, thyromegaly - Routine Chest/Breast/Axilla Exam Axillae: Absent: lymphadenopathy - Routine Respiratory Exam Present: Clear to auscultation bilaterally. Absent: rales, wheezes - Routine Cardiovascular Exam Present: RRR, S1, S2. Absent: murmur - Routine Abdominal Exam Present: soft, normoactive bowel sounds. Absent: tenderness, organomegaly, mass - Routine Extremities Exam Absent: cyanosis, clubbing, edema - Routine Back/Spine Exam Back/Spine: Absent: vertebral tenderness - Routine Skin Exam Present: intact. Absent: cyanosis, erythema, petechiae, rash - Routine Neurological Exam Present: alert, oriented X3 - Routine Psychiatric Exam Present: normal affect, normal thought process Assessment and Plan (1) Iron deficiency anemia Current visit: No Status: Acute 43-year-old woman with iron deficiency anemia due to menstrual blood loss. She seems to be tolerating oral iron and has responded to it in the past. She will try and take 2 pills a day if she can remember. She will return to clinic in about 6 weeks for follow-up. If she is absorbing iron normally, I would expect her hemoglobin to improve by about a half a g weekly. If she fails to absorb or adequately respond to oral iron then I think IV iron might be a reasonable next step. She will return to clinic in about 6 weeks for follow-up. She may want to discuss with her community ambassador about whether pursue any medication to diminish the severity of her menstrual bleeding. (1) Iron deficiency anemia Qualifiers:
--- NOTE | 2019-02-16 09:02 | PC.NURSE ---
IRON RX: faxed to [facility] and patient informed per telephone.
[2019-03-22 13:08] VITALS: BP 137/97; PULSE 70; RESP 16; TEMP 36.9; O2SAT 100
--- NOTE | 2019-03-22 13:34 | ONC.PN ---
PN -Subjective Interval history: Diagnosis: Iron deficiency anemia due to menstrual blood loss. Interval History: Patient is a 43-year-old woman who returns today for follow-up. She has a history of iron deficiency anemia. Since her last visit here, she has been taking iron once or in some cases 2 times a day. She has had occasional abdominal pain but no diarrhea. No nausea or vomiting. Her appetite has been fair. 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 She denies any other bleeding. Overall, she has not noticed any change in her symptoms since her last visit, she still has chills. She notes ongoing fatigue. She did have an episode of palpitations. She really has not noticed any improvement over the last month or 2. She denies any other changes in her health. - Patient Self-Reported Symptoms SR Constitution: Fatigue/Malaise, Night Sweats SR eye issues: Eye pain SR ears, nose, mouth, throat issues: Mouth sores, Swollen glands SR respiratory issues: Shortness of breath SR Cardiovascular issues: Palpitations, Shortness of breath with activity or lying flat, Dizzy/lightheaded SR Skin issues: Hair loss or scalp prob SR Gastrointestinal issues: Nausea, Constipation, Abdominal pain SR Musculoskeletal issues: Joint pain or swelling, Muscle pain or cramps, Back or neck pain, Cold hands or feet SR Neuro issues: Headache, Lightheaded/dizzy SR Hematologic issues: Swollen lymph nodes SR Endocrine issues: Cold intolerance, Hot flashes Home Medications and Allergies Home Medications Medication Instructions Recorded Confirmed Type ferrous sulfate 324 mg PO DAILY #90 tab 02/15/19 03/22/19 Rx Allergies Allergy/AdvReac Type Severity Reaction Status Date / Time Sulfa (Sulfonamide Allergy Intermediate Hives Verified 01/31/19 13:54 Antibiotics) Exam Vital signs: Vital Signs Temp Pulse Resp BP Pulse Ox 03/22/19 13:08 98.4 F 70 16 137/97 H 100 Intake and Output 03/21/19 03/22/19 03/22/19 23:59 07:59 15:59 Other: Weight 68.1 kg Patient Weight 03/22/19 23:59 Weight 68.1 kg - Constitutional positive no acute distress, positive average body habitus - Routine HEENT Exam Head: Present: normocephalic, atraumatic Eye: Present: EOMI, PERRL. Absent: conjunctival icterus, scleral injection ENT: Present: mucous membranes moist, oropharynx clear - Routine Neck Exam Present: supple. Absent: lymphadenopathy, thyromegaly - Routine Respiratory Exam Present: Clear to auscultation bilaterally. Absent: rales, wheezes - Routine Cardiovascular Exam Present: RRR, S1, S2. Absent: murmur - Routine Abdominal Exam Present: soft, normoactive bowel sounds. Absent: tenderness, organomegaly, mass - Routine Extremities Exam Absent: cyanosis, clubbing, edema - Routine Back/Spine Exam Back/Spine: Absent: vertebral tenderness - Routine Skin Exam Present: intact. Absent: petechiae, rash - Routine Neurological Exam Present: alert, oriented X3 - Routine Psychiatric Exam Present: normal affect, normal thought process Assessment and Plan (1) Iron deficiency anemia Current visit: No Status: Acute 43-year-old woman with iron deficiency anemia due to menstrual blood loss. She seems to be tolerating oral iron reasonably well but has not much of an improvement in her red cell count or ferritin. We will plan on treating her with IV iron as soon as can be practically arranged. She will return to clinic at the conclusion of that treatment to assess response. She will continue with oral iron in the meantime. (1) Iron deficiency anemia Qualifiers:
[2019-03-29 14:13] VITALS: BP 118/72; PULSE 71; RESP 16; TEMP 36.5; O2SAT 100
[2019-03-29] MEDS: IRON SUCROSE 200 MG in SODIUM CHLORIDE 0.9% 100 ML 220 ML IV (14:23)
[2019-04-05 11:10] VITALS: BP 107/66; PULSE 71; RESP 16; TEMP 36.6; O2SAT 99
[2019-04-05] MEDS: IRON SUCROSE 200 MG in SODIUM CHLORIDE 0.9% 100 ML 220 ML IV (11:18)
[2019-04-12] MEDS: IRON SUCROSE 200 MG in SODIUM CHLORIDE 0.9% 100 ML 220 ML IV (14:01)
[2019-04-19 14:11] VITALS: BP 114/67; PULSE 79; RESP 16; TEMP 36.9; O2SAT 98
[2019-04-19] MEDS: IRON SUCROSE 200 MG in SODIUM CHLORIDE 0.9% 100 ML 220 ML IV (14:19)
[2019-04-26] MEDS: IRON SUCROSE 200 MG in SODIUM CHLORIDE 0.9% 100 ML 220 ML IV (13:41)
[2019-04-26 13:51] VITALS: BP 128/70; PULSE 66; RESP 16; TEMP 36.9; O2SAT 98
[2019-05-03] MEDS: IRON SUCROSE 200 MG in SODIUM CHLORIDE 0.9% 100 ML 220 ML IV (14:01)
[2019-05-03 14:32] VITALS: BP 118/72; PULSE 78; RESP 16; TEMP 36.5; O2SAT 98
[2019-05-04 07:59] LABS: Add Manual Diff / Slide Review NO; Basophils Absolute Auto 0 /uL (0-100); Basophils Percent Auto 0.7 % (0-2); Eosinophils Absolute Auto 100 /uL (0-450); Eosinophils Percent Auto 2.2 % (2-4); Hematocrit 38.7 % (36-46); Hemoglobin 12.8 g/dL (12.0-16.0); Lymphocytes Absolute Auto 1400 /uL (1100-4500); Lymphocytes Percent Auto 33.1 % (25-40); Mean Corpuscular HGB Conc 33.1 % (30-36); Mean Corpuscular Hemoglobin 25.9 PG (26-34); Mean Corpuscular Volume 78.2 fL (80-100); Monocytes Absolute Auto 300 /uL (0-900); Monocytes Percent Auto 7.5 % (3-14); Neutrophils Absolute Auto 2400 /uL (1500-7000); Neutrophils Percent Auto 56.5 % (50-75); Platelet Count 289 X10^3/uL (150-400); Red Blood Cell Count 4.95 X10^6/uL (4.0-5.2); Red Cell Distribution Width 26.4 % (11.6-14.8); White Blood Cell Count 4.3 X10^3/uL (4.5-11.0)
[2019-05-04 08:21] LABS: HEMOLYSIS < 15 (0-50); Iron 333 ug/dL (37-170)
[2019-05-04 08:30] LABS: Anisocytosis 3+; Hypochromasia 1+; Microcytosis 2+
[2019-05-04 08:32] LABS: Percent Iron Saturation 93 % (15-50); Total Iron Binding Capacity 360 ug/dL (265-497); Transferrin 283 mg/dL (206-381)
[2019-05-10 15:12] VITALS: BP 119/73; PULSE 79; RESP 16; TEMP 37; O2SAT 99
--- NOTE | 2019-05-10 15:22 | ONC.PN ---
PN -Subjective Interval history: ID/CC: 43 year old with iron deficiency anemia due to menstrual blood loss. Treatment: Iron Sucrose 200 mg iv x 6 from 03/29/2019 through 05/03/2019 History of Present Illness Patient is a 43-year-old woman who has a history of iron deficiency anemia most likely due to heavy menstrual periods. Patient had been taking oral irons without significant improvement. She then received intravenous iron sucrose 200 mg IV weekly for 6 cycles. Patient completed the last infusion on 05/03/2019. Patient reported that the lightheadedness has improved significantly. However she still feeling a little bit. Her palpitations have improved and less often. His energy level improved much. He is now what she called normal fatigue. Her [facility] symptoms of ice chewing has completely resolved. She is being followed by Dr. Bernard who will perform lap hysterectomy 05/30/2019 - Patient Self-Reported Symptoms SR Constitution: Night Sweats SR eye issues: Vision changes, Eye pain SR ears, nose, mouth, throat issues: Mouth sores, Swollen glands SR respiratory issues: Shortness of breath SR Cardiovascular issues: Dizzy/lightheaded SR Skin issues: Hair loss or scalp prob SR Gastrointestinal issues: Constipation SR Musculoskeletal issues: Joint pain or swelling, Back or neck pain SR Neuro issues: Headache, Lightheaded/dizzy SR Hematologic issues: Swollen lymph nodes SR Endocrine issues: Hot flashes Home Medications and Allergies Home Medications Medication Instructions Recorded Confirmed Type ferrous sulfate 324 mg PO DAILY #90 tab 02/15/19 05/10/19 Rx Allergies Allergy/AdvReac Type Severity Reaction Status Date / Time Sulfa (Sulfonamide Allergy Intermediate Hives Verified 05/04/19 08:17 Antibiotics) Exam Vital signs: Last Vital Signs Temp 98.6 F 05/10/19 15:12 Pulse 79 05/10/19 15:12 Resp 16 05/10/19 15:12 BP 119/73 05/10/19 15:12 Pulse Ox 99 05/10/19 15:12 ECOG 1 Narrative: Gen: WDWN, NAD, pleasant and cooperative. Accompanied by her [id number] HEENT: NCAT, EOMI, PERRLA, anicteric sclera. Neck: Supple, No palpable thyromegaly or lymphadenopathy. Respiratory: CTAB, no wheezes audible. No JVD Cardiovascular: RRR, S1 and S2 normal, no M/G/R. Abdomen: Soft, NTND, BS normal, no palpable organomegaly Extremities: No LE pitting edema. Lymphatic: no palpable lymph nodes in the neck, axillae, or groins. Neurological: AOx3, CN II-XII grossly intact. No focal motor or sensory deficit. Psychiatric: Good mood, good affect. Results - Labs Laboratory Last Values WBC 4.3 X10^3/uL (4.5-11.0) L 05/04/19 07:41 RBC 4.95 X10^6/uL (4.0-5.2) 05/04/19 07:41 Hgb 12.8 g/dL (12.0-16.0) 05/04/19 07:41 Hct 38.7 % (36-46) 05/04/19 07:41 MCV 78.2 fL (80-100) L 05/04/19 07:41 MCH 25.9 PG (26-34) L 05/04/19 07:41 MCHC 33.1 % (30-36) 05/04/19 07:41 RDW 26.4 % (11.6-14.8) H 05/04/19 07:41 Plt Count 289 X10^3/uL (150-400) 05/04/19 07:41 Neut % (Auto) 56.5 % (50-75) 05/04/19 07:41 Lymph % (Auto) 33.1 % (25-40) 05/04/19 07:41 Dickey % (Auto) 7.5 % (3-14) 05/04/19 07:41 Eos % (Auto) 2.2 % (2-4) 05/04/19 07:41 Baso % (Auto) 0.7 % (0-2) 05/04/19 07:41 Neut # (Auto) 2400 /uL (7268-0272) 05/04/19 07:41 Lymph # (Auto) 1400 /uL (3221-0427) 05/04/19 07:41 Dickey # (Auto) 300 /uL (0-900) 05/04/19 07:41 Eos # (Auto) 100 /uL (0-450) 05/04/19 07:41 Baso # (Auto) 0 /uL (0-100) 05/04/19 07:41 RBC Morphology See below 05/04/19 07:41 Hypochromasia 1+ H 05/04/19 07:41 Anisocytosis 3+ H 05/04/19 07:41 Microcytosis 2+ H 05/04/19 07:41 Iron 333 ug/dL (37-170) H 05/04/19 07:41 TIBC 360 ug/dL (265-497) 05/04/19 07:41 % Saturation 93 % (15-50) H 05/04/19 07:41 Transferrin 283 mg/dL (206-381) 05/04/19 07:41 Ferritin 124.0 ng/mL (6.27-137) 05/04/19 07:41 Assessment and Plan (1) Iron deficiency anemia Overview: 43-year-old woman with iron deficiency anemia due to menstrual blood loss. Assessment: She is now status post IV iron infusions 200 mg x6 completed 05/03/2019. Clinically she has felt significantly better. She is scheduled for laparoscopic hysterectomy on 05/30/2019. Talked with the patient that I will follow-up in about 3 months. Plan: F/u with Fellow for laparoscopic hysterectomy RTC in 3 months, CBC, CMP, Iron profile, Ferritin
[2019-10-18 14:47] LABS: Add Manual Diff / Slide Review NO; Basophils Absolute Auto 0 /uL (0-100); Basophils Percent Auto 0.8 % (0-2); Eosinophils Absolute Auto 200 /uL (0-450); Eosinophils Percent Auto 3.7 % (2-4); Hematocrit 40.8 % (36-46); Hemoglobin 13.3 g/dL (12.0-16.0); Lymphocytes Absolute Auto 2000 /uL (1100-4500); Mean Corpuscular HGB Conc 32.6 % (30-36); Mean Corpuscular Hemoglobin 29.3 PG (26-34); Mean Corpuscular Volume 89.9 fL (80-100); Monocytes Absolute Auto 400 /uL (0-900); Monocytes Percent Auto 8.5 % (3-14); Neutrophils Absolute Auto 2300 /uL (1500-7000); Platelet Count 249 X10^3/uL (150-400); Red Blood Cell Count 4.54 X10^6/uL (4.0-5.2); Red Cell Distribution Width 12.9 % (11.6-14.8); White Blood Cell Count 4.9 X10^3/uL (4.5-11.0)
[2019-10-18 14:59] LABS: Alanine Aminotransferase 31 IU/L (<35); Albumin 4.4 g/dL (3.5-5.0); Albumin Globulin Ratio 1.3 (1.0-2.8); Alkaline Phosphatase 68 U/L (38-126); Aspartate Aminotransferase 29 IU/L (14-36); BUN Creatinine Ratio 11.9 (6-22); Bilirubin Total 0.5 mg/dL (0.2-1.3); Blood Urea Nitrogen 7 mg/dL (7-17); Calcium 8.9 mg/dL (8.4-10.2); Carbon Dioxide 27 mmol/L (22-32); Chloride 104 mmol/L (98-107); Estimated Glomerular Filt Rate > 60.0 mL/min (>60); Globulin 3.3 g/dL (1.7-4.1); Glucose 93 mg/dL (70-100); HEMOLYSIS < 15 (0-50); Potassium 3.9 mmol/L (3.4-5.1); Sodium 138 mmol/L (137-145); Total Protein 7.7 g/dL (6.3-8.2)
[2019-10-18 15:07] LABS: HEMOLYSIS 19 (0-50); Iron 83 ug/dL (37-170)
[2019-10-18 15:18] LABS: Percent Iron Saturation 22 % (15-50); Total Iron Binding Capacity 382 ug/dL (265-497); Transferrin 294 mg/dL (206-381)
[2019-10-18 15:40] LABS: Ferritin 21 ng/mL (6-137)
[2019-10-20 15:57] VITALS: BP 122/79; PULSE 83; RESP 18; TEMP 36.4; O2SAT 98
--- NOTE | 2019-10-20 15:57 | ONC.PN ---
PN -Subjective Interval history: ID/CC: 44 year old with iron deficiency anemia due to menstrual blood loss. History of Present Illness Patient is a 44-year-old woman who has a history of iron deficiency anemia most likely due to heavy menstrual periods. Patient had been taking oral irons without significant improvement. She then received intravenous iron sucrose 200 mg IV weekly for 6 cycles. Patient completed the last infusion on 05/03/2019. Since her previous visit, on 05/30/2019, Dr. mooney's performed laparoscopic supracervical hysterectomy with bilateral salpingectomy. Patient said that after the surgery she has been feeling so much better than before. She is having more energy. She does not have any shortness of breath or chest pain. No abdominal pain. No diarrhea and no constipation. She presents here today for scheduled follow-up visit. Treatment History: Iron Sucrose 200 mg iv x 6 from 03/29/2019 through 05/03/2019 Laparoscopic hysterectomy w/bilateral salpingectomy on 05/30/2019 - Patient Self-Reported Symptoms SR Constitution: Night Sweats SR eye issues: Vision changes, Eye pain SR ears, nose, mouth, throat issues: Mouth sores, Swollen glands SR respiratory issues: Shortness of breath SR Cardiovascular issues: Dizzy/lightheaded SR Skin issues: Hair loss or scalp prob SR Gastrointestinal issues: Constipation SR Musculoskeletal issues: Joint pain or swelling, Back or neck pain SR Neuro issues: Headache, Lightheaded/dizzy SR Hematologic issues: Swollen lymph nodes SR Endocrine issues: Hot flashes - Additional ROS All systems PM: reviewed and no additional remarkable complaints except as stated Home Medications and Allergies Allergies Allergy/AdvReac Type Severity Reaction Status Date / Time Sulfa (Sulfonamide Allergy Intermediate Hives Verified 08/03/19 15:24 Antibiotics) Exam Vital signs: 10/20/19 16:20 Last Vital Signs Temp 97.6 F 10/20/19 15:57 Pulse 83 10/20/19 15:57 Resp 18 10/20/19 15:57 BP 122/79 10/20/19 15:57 Pulse Ox 98 10/20/19 15:57 - Constitutional positive no acute distress, positive average body habitus, positive cooperative - Routine HEENT Exam Head: Present: normocephalic, atraumatic Eye: Present: EOMI, PERRL, normal accommodation. Absent: conjunctival icterus, scleral injection - Routine Neck Exam Present: supple. Absent: lymphadenopathy, thyromegaly - Routine Chest/Breast/Axilla Exam Axillae: Absent: lymphadenopathy - Routine Respiratory Exam Present: Clear to auscultation bilaterally. Absent: rales, rhonchi, wheezes, crackles - Routine Cardiovascular Exam Present: RRR, S1, S2. Absent: murmur, gallop, rubs - Routine Abdominal Exam Present: soft. Absent: tenderness, distended, organomegaly - Routine Extremities Exam Absent: edema - Routine Neurological Exam Present: alert, oriented X3, CN II-XII intact, normal speech. Absent: sensory deficit, motor deficit - Routine Psychiatric Exam Present: normal affect, normal thought process Results - Labs Laboratory Last Values WBC 4.9 X10^3/uL (4.5-11.0) 10/18/19 14:34 RBC 4.54 X10^6/uL (4.0-5.2) 10/18/19 14:34 Hgb 13.3 g/dL (12.0-16.0) 10/18/19 14:34 Hct 40.8 % (36-46) 10/18/19 14:34 MCV 89.9 fL (80-100) 10/18/19 14:34 MCH 29.3 PG (26-34) 10/18/19 14:34 MCHC 32.6 % (30-36) 10/18/19 14:34 RDW 12.9 % (11.6-14.8) 10/18/19 14:34 Plt Count 249 X10^3/uL (150-400) 10/18/19 14:34 Neut % (Auto) 46.0 % (50-75) L 10/18/19 14:34 Lymph % (Auto) 41.0 % (25-40) H 10/18/19 14:34 [place] % (Auto) 8.5 % (3-14) 10/18/19 14:34 Eos % (Auto) 3.7 % (2-4) 10/18/19 14:34 Baso % (Auto) 0.8 % (0-2) 10/18/19 14:34 Neut # (Auto) 2300 /uL (5083-6514) 10/18/19 14:34 Lymph # (Auto) 2000 /uL (1768-1212) 10/18/19 14:34 [place] # (Auto) 400 /uL (0-900) 10/18/19 14:34 Eos # (Auto) 200 /uL (0-450) 10/18/19 14:34 Baso # (Auto) 0 /uL (0-100) 10/18/19 14:34 RBC Morphology See below 05/04/19 07:41 Hypochromasia 1+ H 05/04/19 07:41 Anisocytosis 3+ H 05/04/19 07:41 Microcytosis 2+ H 05/04/19 07:41 Sodium 138 mmol/L (137-145) 10/18/19 14:34 Potassium 3.9 mmol/L (3.4-5.1) 10/18/19 14:34 Chloride 104 mmol/L (98-107) 10/18/19 14:34 Carbon Dioxide 27 mmol/L (22-32) 10/18/19 14:34 BUN 7 mg/dL (7-17) 10/18/19 14:34 Creatinine 0.59 mg/dL (0.52-1.04) 10/18/19 14:34 Estimated GFR > 60.0 mL/min (>60) 10/18/19 14:34 BUN/Creatinine Ratio 11.9 (6-22) 10/18/19 14:34 Glucose 93 mg/dL (70-100) 10/18/19 14:34 Calcium 8.9 mg/dL (8.4-10.2) 10/18/19 14:34 Iron 83 ug/dL (37-170) 10/18/19 14:34 TIBC 382 ug/dL (265-497) 10/18/19 14:34 % Saturation 22 % (15-50) 10/18/19 14:34 Transferrin 294 mg/dL (206-381) 10/18/19 14:34 Ferritin 21 ng/mL (6-137) 10/18/19 14:34 Total Bilirubin 0.5 mg/dL (0.2-1.3) 10/18/19 14:34 AST 29 IU/L (14-36) 10/18/19 14:34 ALT 31 IU/L (<35) 10/18/19 14:34 Alkaline Phosphatase 68 U/L (38-126) 10/18/19 14:34 Total Protein 7.7 g/dL (6.3-8.2) 10/18/19 14:34 Albumin 4.4 g/dL (3.5-5.0) 10/18/19 14:34 Globulin 3.3 g/dL (1.7-4.1) 10/18/19 14:34 Albumin/Globulin Ratio 1.3 (1.0-2.8) 10/18/19 14:34 Assessment and Plan (1) Iron deficiency anemia Overview: 44-year-old woman with iron deficiency anemia due to menstrual blood loss. She underwent laparoscopic hysterectomy with bilateral salpingectomy on 05/30/2019. Assessment: Today I reviewed the laboratory test results with the patient. CBCs have continued to improve. Hemoglobin level is within the normal range. MCV is within the normal range. In addition the iron panels showed normal iron storage. Clinically patient does not have any worrisome signs or symptoms. Talked with the patient that I will have her come back in about 6 months and will repeat the lab tests. If they continue to be stable, I will release her from our service. Plan: RTC in 6 months, CBC, CMP, Iron profile, Ferritin
== END ==
PROVIDERS: Internal Medicine Hematology & Oncology; PCP Physician Assistant
DX: D50.0 Iron deficiency anemia secondary to blood loss (chronic) (principal); Z90.710 Acquired absence of both cervix and uterus
CPT/HCPCS: 36415; 76830; 76856; 80053; 82728; 83540; 83550; 85025; 87045; 87177; 87329; 87899; 96365; 99204; 99214; J1756

== ENCOUNTER → 2020-04-02 15:28 | Outpatient (CLI) | payer OTHER, SELFPAY ==
[2019-05-30 14:17] VITALS: BMI 25.7
--- NOTE | 2020-04-02 15:29 | DI.RAD.S_ITS ---
PROCEDURE: XR THORACIC SPINE 3V INDICATIONS: back pain TECHNIQUE: 3 views of the thoracic spine were acquired. COMPARISON: None. FINDINGS: Bones: No fractures or dislocations. No suspicious bony lesions. Twelve pairs of ribs are noted, and appear intact where visualized. Soft tissues: No paravertebral stripe thickening. IMPRESSION: No trauma found. Minimal degenerative disc disease changes are seen as indicated by slight disc height reduction. Source of new pain is not identified. Dictated by: Nikhil Gomez M.D. on 04/02/2020 at 16:08 Approved by: Nikhil Gomez M.D. on 04/02/2020 at 16:09
== END ==
PROVIDERS: PCP Registered Nurse; Referring Provider Registered Nurse; Visit Provider Registered Nurse
DX: M54.9 Dorsalgia, unspecified (principal)
CPT/HCPCS: 72072

== ENCOUNTER → 2020-04-09 07:45 | Outpatient (CLI) | payer OTHER, SELFPAY ==
[2019-05-30 14:17] VITALS: BMI 25.7
[2020-04-09 09:16] LABS: Cholesterol 160 mg/dL (140-199); HDL Cholesterol 58 mg/dL (40-60); LDL Cholesterol Calculated 81 mg/dL (<100); Triglycerides 104 mg/dL (35-150)
== END ==
PROVIDERS: PCP Registered Nurse; Referring Provider Registered Nurse; Visit Provider Registered Nurse
DX: Z82.49 Family history of ischemic heart disease and other diseases of the circulatory system (principal); Z83.42 Family history of familial hypercholesterolemia; Z82.3 Family history of stroke
CPT/HCPCS: 36415; 80061

== ENCOUNTER → 2020-04-26 08:10 | Outpatient (CLI) | payer OTHER, SELFPAY ==
[2019-05-30 14:17] VITALS: BMI 25.7
--- NOTE | 2020-04-26 08:12 | DI.MG.S_ITS ---
BILATERAL DIGITAL SCREENING MAMMOGRAM 3D/2D WITH CAD: 04/26/2020 CLINICAL: Baseline exam. Routine screening. Family history of breast cancer. No prior exams were available for comparison. The tissue of both breasts is heterogeneously dense. This may lower the sensitivity of mammography. Current study was also evaluated with a Computer Aided Detection (CAD) system. There is a benign lymph node in the right breast. No significant masses, calcifications, or other findings are seen in either breast. IMPRESSION: BENIGN There is no mammographic evidence of malignancy. A 1 year screening mammogram is recommended. This exam was interpreted at Station ID: [id number]. NOTE: For mammograms, a report in lay terms will be sent to the patient. Approximately 15% of breast malignancies will not be visualized mammographically. In the management of a palpable breast mass, a negative mammogram must not discourage biopsy of a clinically suspicious lesion. Electronically Signed By: Ramakrishna Alvarez acr/anumrad:04/26/2020 08:46:12 letter sent: Normal Exam ACR BI-RADS Category 2: Benign Finding(s) 3342F
== END ==
PROVIDERS: PCP Registered Nurse; Referring Provider Registered Nurse; Visit Provider Registered Nurse
DX: Z12.31 Encounter for screening mammogram for malignant neoplasm of breast (principal); Z80.3 Family history of malignant neoplasm of breast
CPT/HCPCS: 77063; 77067

== ENCOUNTER → 2020-10-26 10:06 | Outpatient (CLI) | payer OTHER, SELFPAY ==
[2019-05-30 14:17] VITALS: BMI 25.7
--- NOTE | 2020-10-26 10:10 | DI.RAD.S_ITS ---
PROCEDURE: XR KNEE LT 3V INDICATIONS: left knee pain TECHNIQUE: 3 views of the knee were acquired. COMPARISON: None. FINDINGS: Bones: No fractures or dislocations. No suspicious bony lesions. There is minimal to mild medial femorotibial joint space narrowing and there is minimal to mild lateral patellofemoral joint space narrowing. Soft tissues: There is a small joint effusion. No suspicious soft tissue calcifications. IMPRESSION: Minimal to mild degenerative changes are seen by plain film. If it would be helpful for clinical management decision making, please consider a dedicated, scheduled knee MRI for further evaluation (assuming that there is no contraindication). Dictated by: Simba Cedeno M.D. on 10/26/2020 at 9:39 Approved by: Simba Cedeno M.D. on 10/26/2020 at 9:39
== END ==
PROVIDERS: PCP Registered Nurse; Referring Provider Registered Nurse; Visit Provider Registered Nurse
DX: M25.562 Pain in left knee (principal)
CPT/HCPCS: 73562

== ENCOUNTER → 2021-03-29 09:14 | Outpatient (CLI) | payer OTHER, SELFPAY ==
[2019-05-30 14:17] VITALS: BMI 25.7
--- NOTE | 2021-03-29 09:17 | DI.US.S_ITS ---
PROCEDURE: US ABDOMEN COMPLETE INDICATIONS: PAIN TECHNIQUE: Real-time scanning was performed of the abdominal and retroperitoneal organs, with image documentation. COMPARISON: None. FINDINGS: Liver: Mildly enlarged liver measuring 1 cm in maximum transverse dimension. Increased hepatic parenchymal echogenicity. No focal hepatic mass. Normal hepatic echotexture and contour. Gallbladder: Normally distended. No gallbladder wall thickening, pericholecystic fluid, sludge, or gallstone demonstrated. Biliary ducts: Normal caliber. Pancreas: Visualized portions of the pancreas are sonographically normal. Spleen: Spleen is normal in size and homogeneous in echotexture. Kidneys: Normal size and appearance. No shadowing calculus or hydronephrosis. Aorta: Visualized aorta is normal in caliber at less than 3 cm. Iliacs: Proximal common iliac arteries are normal in caliber at less than 2.5 cm. IVC: Intrahepatic inferior vena cava is patent. Miscellaneous: No free abdominal fluid. IMPRESSION: Hepatic steatosis with mild hepatomegaly. Findings may indicate steatohepatitis. Dictated by: Jose Mackenzie M.D. on 03/29/2021 at 12:10 Approved by: Jose Mackenzie M.D. on 03/29/2021 at 12:21
== END ==
PROVIDERS: PCP Registered Nurse; Referring Provider Nurse Practitioner; Visit Provider Nurse Practitioner
DX: K76.0 Fatty (change of) liver, not elsewhere classified (principal); R10.11 Right upper quadrant pain; R10.13 Epigastric pain; R11.0 Nausea; K21.9 Gastro-esophageal reflux disease without esophagitis; R10.12 Left upper quadrant pain; R19.5 Other fecal abnormalities; R68.81 Early satiety
CPT/HCPCS: 76700

== ENCOUNTER → 2022-01-16 08:01 | Outpatient (CLI) | payer OTHER, SELFPAY ==
[2019-05-30 14:17] VITALS: BMI 25.7
--- NOTE | 2022-01-16 08:04 | DI.MG.S_ITS ---
BILATERAL DIGITAL SCREENING MAMMOGRAM 3D/2D WITH CAD: 01/16/2022 CLINICAL: Routine screening. Family history of breast cancer. Comparison is made to exam dated: 04/26/2020 mammogram - [facility]. Both breasts are heterogeneously dense, which may obscure small masses (category c / 51-75% glandular tissue). Current study was also evaluated with a Computer Aided Detection (CAD) system. No significant masses, calcifications, or other findings are seen in either breast. There has been no significant interval change. IMPRESSION: NEGATIVE There is no mammographic evidence of malignancy. A 1 year screening mammogram is recommended. Based on the Tyrer Cuzick model (a risk assessment model) the patient's lifetime risk is 10.4% and her 10 year risk is 1.9%. According to the ACR, ACS, and NCCN guidelines, an annual breast MRI exam along with mammogram is recommended if the patient's lifetime risk is 20% or greater. This exam was interpreted at Station ID: [id number]. NOTE: For mammograms, a report in lay terms will be sent to the patient. Approximately 15% of breast malignancies will not be visualized mammographically. In the management of a palpable breast mass, a negative mammogram must not discourage biopsy of a clinically suspicious lesion. Electronically Signed By: Pedro lópez/eliseo:01/16/2022 08:45:55 letter sent: Normal Exam ACR BI-RADS Category 1: Negative 3341F
== END ==
PROVIDERS: PCP Family Medicine; Referring Provider Family Medicine; Visit Provider Family Medicine
DX: Z12.31 Encounter for screening mammogram for malignant neoplasm of breast (principal); Z80.3 Family history of malignant neoplasm of breast
CPT/HCPCS: 77063; 77067

== ENCOUNTER → 2022-08-04 08:01 | Outpatient (CLI) | payer OTHER, SELFPAY ==
[2019-05-30 14:17] VITALS: BMI 25.7
[2022-08-04 08:51] LABS: Add Manual Diff / Slide Review NO; Basophils Absolute Auto 0 /uL (0-100); Basophils Percent Auto 0.5 % (0-2); Eosinophils Absolute Auto 100 /uL (0-450); Eosinophils Percent Auto 2.7 % (2-4); Hematocrit 39.6 % (36-46); Hemoglobin 13.4 g/dL (12.0-16.0); Lymphocytes Absolute Auto 1700 /uL (1100-4500); Lymphocytes Percent Auto 31.2 % (25-40); Mean Corpuscular HGB Conc 33.9 % (30-36); Mean Corpuscular Hemoglobin 29.7 PG (26-34); Mean Corpuscular Volume 87.6 fL (80-100); Monocytes Absolute Auto 400 /uL (0-900); Monocytes Percent Auto 8.1 % (3-14); Neutrophils Absolute Auto 3100 /uL (1500-7000); Neutrophils Percent Auto 57.5 % (50-75); Platelet Count 262 X10^3/uL (150-400); Red Blood Cell Count 4.53 X10^6/uL (4.0-5.2); Red Cell Distribution Width 13.1 % (11.6-14.8); White Blood Cell Count 5.3 X10^3/uL (4.5-11.0)
[2022-08-04 09:24] LABS: Alanine Aminotransferase 20 IU/L (<35); Albumin 4.3 g/dL (3.5-5.0); Albumin Globulin Ratio 1.4 (1.0-2.8); Alkaline Phosphatase 67 U/L (38-126); Aspartate Aminotransferase 21 IU/L (14-36); Bilirubin Total 0.5 mg/dL (0.2-1.3); Blood Urea Nitrogen 9 mg/dL (7-17); Calcium 8.8 mg/dL (8.4-10.2); Carbon Dioxide 24 mmol/L (22-32); Chloride 102 mmol/L (98-107); Cholesterol 170 mg/dL (140-199); Estimated Glomerular Filt Rate > 60 mL/min (>60); Globulin 3.1 g/dL (1.7-4.1); Glucose 93 mg/dL (70-100); HDL Cholesterol 47 mg/dL (40-60); HEMOLYSIS < 15 (0-50); LDL Cholesterol Calculated 101 mg/dL (<100); Potassium 4.1 mmol/L (3.4-5.1); Sodium 136 mmol/L (137-145); Total Protein 7.4 g/dL (6.3-8.2); Triglycerides 112 mg/dL (35-150)
[2022-08-04 09:32] LABS: Vitamin D 25 Hydroxy (D3) 19.1 ng/mL (30.0-100.0)
[2022-08-04 09:33] LABS: Free T4, Direct Thyroxine 0.78 ng/dL (0.78-2.19)
[2022-08-04 09:47] LABS: Thyroid Stimulating Hormone 2.87 uIU/mL (0.47-4.68)
== END ==
PROVIDERS: PCP Family Medicine; Referring Provider Family Medicine; Visit Provider Family Medicine
DX: Z13.21 Encounter for screening for nutritional disorder (principal); Z13.228 Encounter for screening for other metabolic disorders; Z13.29 Encounter for screening for other suspected endocrine disorder; Z13.6 Encounter for screening for cardiovascular disorders; Z13.9 Encounter for screening, unspecified
CPT/HCPCS: 36415; 80053; 80061; 82306; 84439; 84443; 85025

== ENCOUNTER → 2023-01-13 09:18 | Outpatient (CLI) | payer OTHER, SELFPAY ==
[2019-05-30 14:17] VITALS: BMI 25.7
--- NOTE | 2023-01-13 09:19 | DI.MG.S_ITS ---
BILATERAL DIGITAL DIAGNOSTIC MAMMOGRAM 3D/2D: 01/13/2023 CLINICAL: Left breast lump. Comparison is made to exams dated: 01/16/2022 mammogram and 04/26/2020 mammogram - [facility]. Both breasts are heterogeneously dense, which may obscure small masses (category c / 51-75% glandular tissue). A BB marker was placed in the area of clinical concern int he left breast, and no mammographic abnormality is identified. No significant masses, calcifications, or other findings are seen in either breast. IMPRESSION: INCOMPLETE: NEEDS ADDITIONAL IMAGING EVALUATION No mammographic evidence of malignancy. Recommend further evaluation with targeted left breast ultrasound, which will immediately follow this exam. Based on the Tyrer Cuzick model (a risk assessment model) the patient's lifetime risk is 10.9% and her 10 year risk is 2.1%. According to the ACR, ACS, and NCCN guidelines, an annual breast MRI exam along with mammogram is recommended if the patient's lifetime risk is 20% or greater. This exam was interpreted at Station ID: [id number]. NOTE: For mammograms, a report in lay terms will be sent to the patient. Approximately 15% of breast malignancies will not be visualized mammographically. In the management of a palpable breast mass, a negative mammogram must not discourage biopsy of a clinically suspicious lesion. Electronically Signed By: Angeli raymondb/:01/13/2023 10:19:54 ACR BI-RADS Category 0: Incomplete 3340F
--- NOTE | 2023-01-13 09:19 | DI.US.S_ITS ---
LIMITED ULTRASOUND OF LEFT BREAST: 01/13/2023 CLINICAL: Palpable left breast lump. Comparison is made to exams dated: 01/13/2023 mammogram, 01/16/2022 mammogram, and 04/26/2020 mammogram - [facility]. Color flow and real-time ultrasound of the left breast 3 o'clock region were performed. No sonographic abnormality is seen in the area of clinical concern in the left breast at 3 o'clock, 4 cm from the nipple. IMPRESSION: NEGATIVE No sonographic abnormality in the area of clinical concern in the left breast at 3 o'clock. No mammographic or sonographic evidence of malignancy. Recommend routine annual mammogram screening in 1 year. Clinical follow-up is also recommended, and further management of palpable abnormalities or other focal signs or symptoms should be based on the results of clinical evaluation. If symptoms persist or become more focal in nature, further clinical evaluation should be considered. Findings and recommendations were conveyed to the patient during today's evaluation. This exam was interpreted at Station ID: [id number]. Electronically Signed By: Angeli beckwith/:01/13/2023 10:22:53 letter sent: Clinical Evaluation Ultrasound BI-RADS: 1 Negative
== END ==
PROVIDERS: PCP Family Medicine; Referring Provider Family Medicine; Visit Provider Family Medicine
DX: N63.21 Unspecified lump in the left breast, upper outer quadrant (principal); N63.23 Unspecified lump in the left breast, lower outer quadrant; R92.2 Inconclusive mammogram
CPT/HCPCS: 76642; 77066; G0279

== ENCOUNTER → 2023-06-18 09:36 | Outpatient (CLI) | payer OTHER, SELFPAY ==
[2019-05-30 14:17] VITALS: BMI 25.7
--- NOTE | 2023-06-18 09:38 | DI.RAD.S_ITS ---
PROCEDURE: XR SHOULDER RT MIN 2V INDICATIONS: Tender in AC joint - poss calcific tendinitis TECHNIQUE: 3 views of the shoulder were acquired. COMPARISON: None. FINDINGS: Bones: No fractures or dislocations. No suspicious bony lesions. Visualized ribs appear intact. Soft tissues: No suspicious soft tissue calcifications. IMPRESSION: No visualized acute fracture or dislocation. However, if clinical concern and/or pain persist, short interval imaging followup in 7-10 days is recommended, as occult injury cannot be definitively excluded. Dictated by: Flores Masterson M.D. on 06/18/2023 at 13:46 Approved by: Flores Masterson M.D. on 06/18/2023 at 13:46
[2023-06-18 10:20] LABS: Add Manual Diff / Slide Review NO; Basophils Absolute Auto 0 /uL (0-100); Basophils Percent Auto 0.6 % (0-2); Eosinophils Absolute Auto 100 /uL (0-450); Eosinophils Percent Auto 2.7 % (2-4); Hematocrit 39.4 % (36-46); Hemoglobin 13.3 g/dL (12.0-16.0); Lymphocytes Absolute Auto 1500 /uL (1100-4500); Lymphocytes Percent Auto 33.9 % (25-40); Mean Corpuscular HGB Conc 33.8 % (30-36); Mean Corpuscular Hemoglobin 29.8 PG (26-34); Mean Corpuscular Volume 88.4 fL (80-100); Monocytes Absolute Auto 300 /uL (0-900); Monocytes Percent Auto 7.5 % (3-14); Neutrophils Absolute Auto 2500 /uL (1500-7000); Neutrophils Percent Auto 55.3 % (50-75); Platelet Count 278 X10^3/uL (150-400); Red Blood Cell Count 4.46 X10^6/uL (4.0-5.2); Red Cell Distribution Width 12.7 % (11.6-14.8); White Blood Cell Count 4.5 X10^3/uL (4.5-11.0)
[2023-06-18 10:51] LABS: Hemoglobin A1C% w Est Avg Glu 5.6 % (4.0-6.0)
[2023-06-18 11:00] LABS: Alanine Aminotransferase 13 IU/L (<35); Albumin 4.1 g/dL (3.5-5.0); Albumin Globulin Ratio 1.2 (1.0-2.8); Alkaline Phosphatase 62 U/L (38-126); Aspartate Aminotransferase 19 IU/L (14-36); BUN Creatinine Ratio 16.7 (6-22); Bilirubin Total 0.5 mg/dL (0.2-1.3); Blood Urea Nitrogen 9 mg/dL (7-17); Calcium 8.8 mg/dL (8.4-10.2); Carbon Dioxide 27 mmol/L (22-32); Chloride 108 mmol/L (98-107); Cholesterol 141 mg/dL (140-199); Estimated Glomerular Filt Rate > 60 mL/min (>60); Globulin 3.5 g/dL (1.7-4.1); Glucose 94 mg/dL (70-100); HDL Cholesterol 41 mg/dL (40-60); HEMOLYSIS < 15 (0-50); LDL Cholesterol Calculated 84 mg/dL (<100); Potassium 4.2 mmol/L (3.4-5.1); Sodium 139 mmol/L (137-145); Total Protein 7.6 g/dL (6.3-8.2); Triglycerides 80 mg/dL (35-150)
[2023-06-18 11:18] LABS: Vitamin D 25 Hydroxy (D3) 26.5 ng/mL (30.0-100.0)
[2023-06-18 11:31] LABS: TSH w/ Reflex to FT4 1.96 uIU/mL (0.47-4.68)
[2023-06-18 11:35] LABS: Ferritin 35 ng/mL (6-137)
[2023-06-18 11:49] LABS: Vitamin B12 232 pg/mL (239-931)
== END ==
PROVIDERS: PCP Family Medicine; Referring Provider Physician Assistant; Visit Provider Physician Assistant
DX: M25.511 Pain in right shoulder (principal); D50.9 Iron deficiency anemia, unspecified; K76.0 Fatty (change of) liver, not elsewhere classified; R73.01 Impaired fasting glucose; R53.83 Other fatigue; R79.89 Other specified abnormal findings of blood chemistry; Z13.220 Encounter for screening for lipoid disorders; Z83.3 Family history of diabetes mellitus; Z13.6 Encounter for screening for cardiovascular disorders
CPT/HCPCS: 36415; 73030; 80053; 80061; 82306; 82607; 82728; 83036; 84443; 85025

== ENCOUNTER → 2023-12-09 10:08 | Outpatient (CLI) | payer OTHER, SELFPAY ==
[2019-05-30 14:17] VITALS: BMI 25.7
--- NOTE | 2023-12-09 10:09 | DI.US.S_ITS ---
PROCEDURE: US PERIPH VENOUS LOW EXTREM LT INDICATIONS: LEFT CALF PAIN WORSE WITH WALKING AND STANDING TECHNIQUE: Real-time imaging, as well as color and pulse Doppler interrogation, were performed of the lower extremity deep veins from the inguinal ligament to the popliteal fossa, with documentation of the visualized calf veins. COMPARISON: None. FINDINGS: The common femoral, femoral, popliteal, and the visualized calf veins are normally compressible, and free of intraluminal thrombus. Color and pulse Doppler demonstrate normal phasic intraluminal flow. There is normal augmentation response to distal compression maneuver. Area of pain within the left posterior calf demonstrates no sonographic abnormality. IMPRESSION: No findings of lower extremity deep venous thrombosis. Dictated by: Naren Hayden M.D. on 12/09/2023 at 11:36 Approved by: Naren Hayden M.D. on 12/09/2023 at 11:37
== END ==
PROVIDERS: PCP Family Medicine; Referring Provider Physician Assistant; Visit Provider Physician Assistant
DX: M79.662 Pain in left lower leg (principal)
CPT/HCPCS: 93971

== ENCOUNTER → 2024-01-18 13:54 | Outpatient (CLI) | payer OTHER, SELFPAY ==
[2019-05-30 14:17] VITALS: BMI 25.7
--- NOTE | 2024-01-18 13:55 | DI.MG.S_ITS ---
BILATERAL DIGITAL SCREENING MAMMOGRAM 3D/2D WITH CAD: 01/18/2024 CLINICAL: Routine screening. Family history of breast cancer. Comparison is made to exams dated: 01/13/2023 mammogram, 01/16/2022 mammogram, and 04/26/2020 mammogram - [facility]. The breasts are heterogeneously dense, which may obscure small masses (category c / 51-75% glandular tissue). Current study was also evaluated with a Computer Aided Detection (CAD) system. No significant masses, calcifications, or other findings are seen in either breast. There has been no significant interval change. IMPRESSION: NEGATIVE There is no mammographic evidence of malignancy. A 1 year screening mammogram is recommended. Based on the Tyrer Cuzick model (a risk assessment model) the patient's lifetime risk is 11.2% and her 10 year risk is 2.3%. According to the ACR, ACS, and NCCN guidelines, an annual breast MRI exam along with mammogram is recommended if the patient's lifetime risk is 20% or greater. This exam was interpreted at Station ID: [id number]. NOTE: For mammograms, a report in lay terms will be sent to the patient. Approximately 15% of breast malignancies will not be visualized mammographically. In the management of a palpable breast mass, a negative mammogram must not discourage biopsy of a clinically suspicious lesion. Electronically Signed By: Abraham forbes/eliseo:01/18/2024 18:44:28 letter sent: Normal Exam ACR BI-RADS Category 1: Negative
== END ==
PROVIDERS: PCP Family Medicine; Referring Provider Family Medicine; Visit Provider Family Medicine
DX: Z12.31 Encounter for screening mammogram for malignant neoplasm of breast (principal); Z80.3 Family history of malignant neoplasm of breast; R92.333 Mammographic heterogeneous density, bilateral breasts
CPT/HCPCS: 77063; 77067

== ENCOUNTER 2024-02-26 13:04 | Day surgery (SDC) | payer OTHER, SELFPAY ==
[2019-05-30 14:17] VITALS: BMI 25.7
[2024-02-26 13:25] VITALS: BP 112/78; PULSE 77; RESP 18; TEMP 36.1; O2SAT 98
--- NOTE | 2024-02-26 14:11 | PM.HP.1 ---
History of Present Illness History of Present Illness Date Patient Seen: 02/26/24 Chief complaint: Colonoscopy Narrative: The patient presents for colorectal screening. They have never had any previous examination for such. No personal or family history of colon cancer. On further history denies any recent gastrointestinal symptoms. No nausea, vomiting, abdominal pain, loss of appetite, unexplained weight loss, change in bowel habits, or blood per rectum. [facility] Medical History (Updated 12/09/23 @ 09:58 by Jenn Gregory PA-C) Iron deficiency anemia Left breast lump Benign nevus Constipation Seasonal allergic rhinitis BPPV (benign paroxysmal positional vertigo) Gastroesophageal reflux disease Hepatic steatosis Hepatomegaly Left knee pain Chlamydia Palpitations Migraines Carpal tunnel syndrome (~1999) Anemia (~2000) Blindness Painful menstrual periods Surgical History History of hysterectomy (~07/2019) Anesthesia History of tubal ligation (~2001) Family History Mother Diabetes mellitus Mental health problem History of heart disease Hypertension Brother Hypertension Brother Diabetes mellitus Hypertension Grandfather History of heart disease Hypertension Stroke Hyperlipidemia Social History household members: spouse and children Smoking Status: Never smoker second hand exposure: No alcohol intake: never substance use type: does not use Meds Home Medications and Allergies Home Medications Medication Instructions Recorded Confirmed Type cetirizine 5 mg tablet 5 mg PO DAILY 02/26/24 02/26/24 History Allergies Allergy/AdvReac Type Severity Reaction Status Date / Time Sulfa (Sulfonamide Allergy Intermediate Hives Verified 12/09/23 09:28 Antibiotics) Exam Vital Signs (past 8 hours): - 02/26/24 13:25 Temperature 96.9 F L Pulse Rate 77 Respiratory Rate 18 Blood Pressure 112/78 Pulse Oximetry 98 Oxygen Delivery Method Room Air Oxygen Delivery Method Room Air Narrative Exam Narrative: General adult woman alert oriented no acute distress Chest nonlabored respiration Extremities warm well perfused Assessment & Plan Assessment & Plan narrative: The patient requires colorectal screening and colonoscopy is recommended. Technical details were discussed. Risks, benefits, alternatives explained. Risks including but not limited to myocardial infarction, aspiration, bleeding, pain, missed lesion, incomplete examination, need for further radiographic studies, intestinal injury, and need for major abdominal surgery were discussed. All questions were answered to their satisfaction, and they are in agreement with this plan. Time-Based Coding :: [TOTAL MINUTES] spent with patient and on the chart (including review of chart, obtaining history, exam, reviewing outside data, placing orders, documenting exam and treatment plan, and counseling patient) on [DATE].
[2024-02-26 14:34] VITALS: BP 112/60; PULSE 76; RESP 16; TEMP 36.4; O2SAT 98
--- NOTE | 2024-02-26 14:37 | P.OP.COLON_ITS ---
Operative Date/Time/Diagnoses Date of procedure: 02/26/24 Time of procedure: 14:37 Pre-op diagnosis: Colorectal screening Procedure & Clinicians Study performed: Screening colonoscopy Same procedure as scheduled: Yes Indications: Colorectal screening Surgeon: Kee Grace Procedure Notes Procedure in detail: The history and physical was performed/updated and the patient is ASA class is 2. The procedure was discussed in detail with the patient. Potential risks co mplications including infection, bleeding, missed diagnosis, perforation, need for surgery, and were explained. Their questions were answered and informed consent was obtained. Patient was brought to the procedure room and placed standard monitoring equipment. The patient's vital signs were monitored continuously throughout the entire procedure. Prior to starting time-out was performed. The patient was placed in the left lateral recumbent position. Procedural sedation was administered by anesthesia. Examination began with a thorough inspection of the perianal area there was no evidence of fissures, fistulae, external hemorrhoids or cutaneous malignancy. The colonoscopy scope was then placed into the anal canal and was advanced to the cecum, which was identified by the ileocecal valve, the appendiceal orifice and the confluence of the taenia. The scope was then slowly withdrawn examining colon thoroughly in all directions, irrigating it of any residual stool. The scope was retroflexed within the rectum The patient tolerated the procedure well. They will be discharged once criteria are met. The prep was of fair quality. The withdrawl time was 7 minutes. FINDINGS * Unremarkable colonoscopy. Normal healthy colonic mucosa without mass or polyps. Specimen(s): none sent Impression: Normal colonoscopy Post-procedure Recommendations: Colonoscopy in 10 years Disposition: same day surgery
[2024-02-26 14:38] VITALS: BP 112/59; PULSE 75; RESP 16; TEMP 36.2; O2SAT 98
[2024-02-26 14:41] VITALS: BP 116/70; PULSE 80; RESP 16; TEMP 36.2; O2SAT 98
[2024-02-26 14:47] VITALS: BP 116/75; PULSE 82; RESP 16; TEMP 36.2; O2SAT 98
[2024-02-26 14:57] VITALS: BP 122/72; PULSE 87; RESP 16; TEMP 36.8; O2SAT 98
== END 2024-02-26 15:00 | disposition home or self-care (01) ==
PROVIDERS: PCP Family Medicine; Referring Provider Surgery; Visit Provider Surgery
PROC: 0DJD8ZZ Inspection of Lower Intestinal Tract, Via Natural or Artificial Opening Endoscopic (ICD-10-PCS; CPT 45378; principal; 2024-02-26 14:15)
DX: Z12.11 Encounter for screening for malignant neoplasm of colon (principal)
CPT/HCPCS: 45378; J2704

== ENCOUNTER → 2024-03-07 06:59 | Outpatient (CLI) | payer OTHER, SELFPAY ==
[2019-05-30 14:17] VITALS: BMI 25.7
[2024-03-07 07:40] LABS: Add Manual Diff / Slide Review NO; Basophils Absolute Auto 0 /uL (0-100); Basophils Percent Auto 0.5 % (0-2); Eosinophils Absolute Auto 300 /uL (0-450); Eosinophils Percent Auto 4.7 % (2-4); Hemoglobin 13.8 g/dL (12.0-16.0); Lymphocytes Absolute Auto 2100 /uL (1100-4500); Lymphocytes Percent Auto 37.8 % (25-40); Mean Corpuscular HGB Conc 32.9 % (30-36); Mean Corpuscular Hemoglobin 29.4 PG (26-34); Mean Corpuscular Volume 89.4 fL (80-100); Monocytes Absolute Auto 500 /uL (0-900); Monocytes Percent Auto 9.8 % (3-14); Neutrophils Absolute Auto 2600 /uL (1500-7000); Neutrophils Percent Auto 47.2 % (50-75); Platelet Count 289 X10^3/uL (150-400); Red Cell Distribution Width 12.9 % (11.6-14.8); White Blood Cell Count 5.5 X10^3/uL (4.5-11.0)
[2024-03-07 07:59] LABS: Alanine Aminotransferase 17 IU/L (<35); Albumin 4.4 g/dL (3.5-5.0); Albumin Globulin Ratio 1.5 (1.0-2.8); Alkaline Phosphatase 62 U/L (38-126); Aspartate Aminotransferase 23 IU/L (14-36); BUN Creatinine Ratio 18.5 (6-22); Bilirubin Total 0.6 mg/dL (0.2-1.3); Blood Urea Nitrogen 12 mg/dL (7-17); Calcium 9.5 mg/dL (8.4-10.2); Carbon Dioxide 26 mmol/L (22-32); Chloride 104 mmol/L (98-107); Cholesterol 156 mg/dL (140-199); Estimated Glomerular Filt Rate > 60 mL/min (>60); Globulin 2.9 g/dL (1.7-4.1); Glucose 97 mg/dL (70-100); HDL Cholesterol 44 mg/dL (40-60); HEMOLYSIS < 15 (0-50); LDL Cholesterol Calculated 88 mg/dL (<100); Potassium 4.2 mmol/L (3.4-5.1); Sodium 138 mmol/L (137-145); Total Protein 7.3 g/dL (6.3-8.2); Triglycerides 122 mg/dL (35-150)
[2024-03-07 09:03] LABS: TSH w/ Reflex to FT4 3.45 uIU/mL (0.47-4.68)
[2024-03-07 09:06] LABS: Estradiol, Total 37.8 pg/mL
== END ==
PROVIDERS: PCP Family Medicine; Referring Provider Family Medicine; Visit Provider Family Medicine
DX: L65.9 Nonscarring hair loss, unspecified (principal); R53.83 Other fatigue; R73.01 Impaired fasting glucose
CPT/HCPCS: 36415; 80053; 80061; 82670; 84443; 85025